=== PATIENT | female | born 1980 | race Caucasian/White ===

== ENCOUNTER 2023-08-19 18:37 | Emergency (ER) | payer BC, SELFPAY ==
[2023-08-19 18:39] VITALS: BP 130/90
[2023-08-19 19:09] VITALS: BMI 26.2
--- NOTE | 2023-08-19 19:18 | ED.GENMED ---
History of Present Illness
General
Chief Complaint: Abdominal Symptoms
Source: patient
Exam Limitations: none
Time Seen by Provider: 08/19/23 18:52
History of Present Illness
History of Present Illness:
This is a 42 year old female that comes in with c/o vomiting, diarrhea and left sided abd pain. States that she started yesterday with diarrhea. Then last night a little vomiting and then today she has been vomiting all day. States that she also has
left sided abd pain. States that she felt dizzy. Denies any fever, chills, chest pain, SOB, headache, urinary burning.
Past History
Past History
ED Past Medical History: Arrthythmia (PVC's) and Other (Sarcoidosis, small fiber neuropathy, Headaches, Arnold Chiari Malformation); Negative Cancer, GERD, HTN, Hypercholesterolemia, IDDM or NIDDM
ED Past Surgical History: (X 3), Gynecological (Hysterectomy) and Other (sinus Surgery, ); Negative Appendectomy or Bowel resection
Social History
Tobacco: Smoker
Alcohol: None
Drug: None
Personal:
Living: with family
Employment: Employed
Family History
Family History: Hypertension
Review of Systems
Review of Systems
All Other Systems: ROS reviewed and negative except as documented in HPI and ROS
Constitutional: Reports no symptoms; Denies fever or chills
EENT: Reports no symptoms
Respiratory: Reports no symptoms; Denies cough or trouble breathing
Cardiac: Reports no symptoms; Denies chest pain
ABD/GI: Reports abdominal pain, nausea, vomiting and diarrhea
: Reports no symptoms; Denies dysuria, frequency or urgency
Musculoskeletal: Reports no symptoms
Skin: Reports no symptoms
Neurological: Reports dizzy; Denies headache
Psychiatric: Reports no symptoms
Phy Exam
General Physical Exam
General Presentation: mild distress
General age: appears stated age
General Skin: warm and dry
General Habitus: normal
General Mental: alert
General Hydration: dry mucous membranes
ENT Exam
ENT Exam: TM's normal, pharynx normal and neck supple
Eye Exam
Eye Exam: EOMI
Cardiovascular Exam
Cardiovascular Exam: regular rate/rhythm, no edema, no murmur and normal peripheral pulses
Pulmonary Exam
Pulmonary Exam: lungs clear, no respiratory distress, no rales, chest non tender, no crackles, no rhonchi, no wheezing and no cough
Gastrointestinal Exam
Gastrointestinal Exam: non tender, soft, no organomegaly, no pulsatile mass, non distended and other (Hypoactive bowel sounds)
Musculoskeletal Exam
Musculoskeletal Exam: full ROM and no edema
Skin Exam
Skin Exam: normal color, warm/dry, no rash and no petechia
Psychiatric Exam
Psychiatric Exam: normal mood/affect
Course
Orders/Labs/Results
Orders:
Orders
08/19/23 19:16
0.9% Sodium Chloride 1000 ml [Nss] 1,000 ml IV BOLUS
Diphenhydramine [Benadryl] 25 mg IV NOW STA
HYDROmorphone [Dilaudid] 1 mg IV NOW STA
Prochlorperazine [Compazine] 5 mg IV NOW STA
Test Result ONCE
08/19/23 19:18
CT Abd/pel Without Iv Or Oral Urgent
Comment:
Reason For Exam: left sided abd pain
08/19/23 19:19
Complete Blood Count/With Diff Urgent
Comprehensive Metabolic Panel Urgent
HCG, Serum Qualitative Screen Urgent
08/19/23 20:02
Bedside Glucose- Treatment ONCE
08/19/23 20:33
Bedside Glucose- Treatment ONCE
08/19/23 21:11
Urinalysis Reflex To Culture Urgent
Date Specimen was Collected: 08/19/23
Time Specimen was Collected: 21:08
Abnormal Lab Results
08/19/23 08/19/23 08/19/23
19:19 20:17 21:11
Absolute Neuts (auto) 8.7 H 10^3/uL
(1.4-6.5)
Absolute Lymphs (auto) 1.1 L 10^3/uL
(1.2-3.4)
Neutrophils % 84.4 H %
(42.2-75.2)
Lymphocytes % 10.6 L %
(20.5-51.1)
Carbon Dioxide 14 L* mmol/L
(22-30)
Glucose 69 L mg/dl
(70-99)
Calcium 10.4 H mg/dl
(8.4-10.2)
Total Protein 8.4 H g/dl
(6.3-8.2)
Albumin 5.3 H g/dl
(3.5-5.0)
Urine Ketones 3+ A
(Negative)
POC Glucose 69 L mg/dl
(70-99)
08/19/23 19:19
08/19/23 19:19
[id number] low. Glucose slightly low (patient given juice and this came up ), Total protein slightly elevated. Albumin slightly elevated. Urine negative for infection.
Vital Signs
Initial and Last Documented VS:
Initial Vital Signs
Temp Pulse Resp BP Pulse Ox
97.9 F 90 20 130/90 99
08/19/23 18:39 08/19/23 18:39 08/19/23 18:39 08/19/23 18:39 08/19/23 18:39
Last Documented Vital Signs
Temp Pulse Resp BP Pulse Ox
97.9 F 83 13 109/69 96
08/19/23 18:39 08/19/23 21:00 08/19/23 21:00 08/19/23 21:00 08/19/23 21:00
MDM/Problems Addressed
Differential Diagnosis Includes:
Renal calculus, vomiting and diarrhea
MDM/Problems Addressed:
This is a 42 year old female that comes in with c/o vomiting and diarrhea and left sided abd pain. States that the diarrhea started last night with a little vomiting. Then today the vomiting got worse and she has left sided abd pain.
Will get labs, medicate for pain and vomiting, give IV fluids and CT scan.
Back into see patient. States that her pain is starting to come back. State that she just wants to go home. Will give patient Toradol IV. Encouraged patient to increase her water intake to 8-8oz glasses daily. She can use Ibuprofen at home for pain
with food. Follow up with the family doctor. Return with any concerns.
Chronic conditions affecting care:
NA
Acute Exacerbation and/or Progression of Chronic Illness:
NA
*Radiology
Radiology exam reviewed: radiology read reviewed (CT- Possible 2mm distal left ureteral stone versus a phlebolith. No evidence of obsruction. Stable suggesting more likely a phlebolith. )
*Pulse Oximetry
Patient hypoxic: no
*EKG
Interpreted by ED Provider?: NA
Rate: EKG- N/A
*Diesel Automotive Technician Interpretation
Rate: normal
Heart Rate: 78
Rhythm: sinus
*Critical Care Note
Total Time (30-74mins, 75-104mins- exclusive of procedures): Not Applicable
ED Attending Note
-
Portions of this chart may have been created with voice recognition software.� Occasional wrong word or��sound alike� substitutions may have occurred due to the inherent limitations of voice recognition software.
Discharge Plan
Departure
Patient Disposition: Home (Routine Discharge)
Date of Disposition: 08/19/23
Time of Disposition: 22:09
Patient with high blood pressure during this ER visit?: No
Condition: Good
Covid-19: Not Applicable
Discharge Problem:
Nausea & vomiting, Diarrhea
Instructions: Nausea and Vomiting, Adult (DC), Acute Diarrhea
Prescriptions:
New
prochlorperazine [Compazine] 25 mg suppository
25 mg CO Q12H PRN (Reason: Nausea and vomiting) Qty: 12 0RF
No Action
citalopram [Celexa] 40 MG tablet
40 mg PO DAILY
diphenhydramine HCl 50 mg Capsule
50 mg PO HS
topiramate [Topamax] 200 mg Tablet
200 mg PO HS
acetaminophen [Tylenol] 325 mg Tablet
650 mg PO PRN PRN (Reason: pain)
acetaminophen 325 mg Tablet
650 mg PO Q4HPRN PRN (Reason: mild pain) Qty: 20 0RF
pregabalin [Lyrica] 200 mg Capsule
200 mg PO TID
Wegovy 1 mg/0.5 mL Pen Injector
1 mg SC QWEEK
Referrals:
Juan David Copeland MD [Family Provider] - Follow up in 2-3 days
Activity Restrictions/Additional Instructions:
As discussed, your blood work shows that your carbon dioxide level is low. This goes along with the Vomiting and diarrhea. Please increase your water intake to 8-8oz glasses daily. You may use Ibuprofen 600mg every 6 hours with food for any pain.
Follow up with the family doctor for recheck. You have also been gven a prescription for Compazine to help with the nausea and vomiting. This is a rectal suppository. This can make you a little sleepy. Please stay away form milk and milk products as
long as you have diarrhea as this is hard for the gut to digest. IF YOU HAVE INCREASED PAIN, VOMITING THAT IT NOT CONTROLLED OR YOU HAVE ANY OTHER CONCERNS PLEASE RETURN TO THE EMERGENCY ROOM.
Interventions
Interventions:
*Risk Screen - Suicide Last Done: 08/19/23 18:39
*General Assessment Last Done: 08/19/23 18:39
*Neglect/Abuse Screening Last Done: 08/19/23 18:39
ED- Fall Risk Assessment Last Done: 08/19/23 19:32
TF-Oyizgd-Wpfaylbnxw Assessment Last Done: 08/19/23 19:32
Discharge Date and Time
Print Language: BELARUSIAN
[2023-08-19] MEDS: NSS 1000 IV (19:22)
[2023-08-19] MEDS: BENADRYL 25 MG IV ×2 (19:22)
[2023-08-19] MEDS: COMPAZINE 5 MG IV (19:24)
[2023-08-19] MEDS: DILAUDID 1 MG IV (19:24)
[2023-08-19 19:25] LABS: % Basophils 0.7 % (0-2); % Eosinophils 0.1 % (0-6); % Immature Granulocytes 0.3 % (0-0.5); % Lymphocytes 10.6 % (20.5-51.1); % Monocytes 3.9 % (1.7-9.3); % Neutrophils 84.4 % (42.2-75.2); Absolute Basophils 0.1 10^3/uL (0-0.2); Absolute Lymphocytes 1.1 10^3/uL (1.2-3.4); Absolute Monocytes 0.4 10^3/uL (0.1-0.6); Absolute Neutrophils 8.7 10^3/uL (1.4-6.5); Hematocrit 43.2 % (37.0-47.0); Hemoglobin 15.2 g/dL (12.0-16.0); Mean Corp Hgb Conc. 35.2 g/dL (33.0-37.0); Mean Corpuscular Hgb 28.8 pg (27.0-31.0); Mean Corpuscular Volume 81.8 fL (81.0-99.0); Mean Platelet Volume 10.3 fL (7.4-10.4); Nucleated Red Blood Cells % 0 %; Platelet Count 352 10^3/uL (130-400); Red Blood Cell Count 5.28 10^6/uL (4.20-5.40); Red Cell Dist. Width 13.7 % (11.5-14.5); White Blood Cell Count 10.3 10^3/uL (4.8-10.8)
[2023-08-19 19:30] VITALS: BP 130/90
[2023-08-19 19:39] LABS: HCG, Serum Qualitative Screen Negative
[2023-08-19 19:46] LABS: ALT (SGPT) 14 U/L (0-35); AST (SGOT) 20 U/L (14-36); Albumin 5.3 g/dl (3.5-5.0); Alkaline Phosphatase 88 U/L (38-126); Blood Urea Nitrogen 10 mg/dl (7-17); Calcium 10.4 mg/dl (8.4-10.2); Carbon Dioxide 14 mmol/L (22-30); Chloride 105 mmol/L (98-107); Estimated Creatinine Clearance 98 ml/min; Glucose 69 mg/dl (70-99); Potassium 3.7 mmol/L (3.5-5.1); Sodium 141 mmol/L (135-145); Total Bilirubin 0.6 mg/dl (0.2-1.3); Total Protein 8.4 g/dl (6.3-8.2); eGFR > 60.00
[2023-08-19 20:01] VITALS: BP 122/72
[2023-08-19 20:18] LABS: Glucose - Point of Care 69 mg/dl (70-99)
[2023-08-19 20:42] LABS: Glucose - Point of Care 74 mg/dl (70-99)
[2023-08-19 21:00] VITALS: BP 109/69
[2023-08-19 21:20] LABS: Urine Albumin Trace (Neg - Trace); Urine Bilirubin Negative (Negative); Urine Character Clear (Clear); Urine Color Yellow; Urine Glucose Negative (Negative); Urine Ketone 3+ (Negative); Urine Leukocyte Negative (Negative); Urine Nitrite Negative (Negative); Urine Occult Blood Negative (Negative); Urine Specific Gravity 1.025 (<1.030); Urine Urobilinogen Negative (Neg - 1+)
[2023-08-19 22:02] VITALS: BP 116/76
[2023-08-19] MEDS: TORADOL 30 MG IV (22:05)
== END 2023-08-19 22:20 | disposition home or self-care (01) ==
LOC: EMR 18:37
PROVIDERS: Clinical Nurse Specialist Family Health; EMERGENCY PHYSICIAN Emergency Medicine; FAMILY PHYSICIAN Family Medicine
DX: R11.2 Nausea with vomiting, unspecified (principal); R19.7 Diarrhea, unspecified; F17.200 Nicotine dependence, unspecified, uncomplicated
CPT/HCPCS: 99284; 96374; 96375 ×3; 96361; 74176; 80053; 81003; 82962; 84703; 85025

== ENCOUNTER 2023-09-11 14:18 | Emergency (ER) | payer BC, SELFPAY ==
[2023-09-11 14:22] VITALS: BP 127/86
[2023-09-11 14:43] LABS: % Eosinophils 1.2 % (0-6); % Immature Granulocytes 0.3 % (0-0.5); % Lymphocytes 10.1 % (20.5-51.1); % Monocytes 2.8 % (1.7-9.3); % Neutrophils 84.6 % (42.2-75.2); Absolute Basophils 0.1 10^3/uL (0-0.2); Absolute Eosinophils 0.1 10^3/uL (0-0.7); Absolute Lymphocytes 0.7 10^3/uL (1.2-3.4); Absolute Monocytes 0.2 10^3/uL (0.1-0.6); Absolute Neutrophils 6.1 10^3/uL (1.4-6.5); Hematocrit 42.1 % (37.0-47.0); Hemoglobin 14.3 g/dL (12.0-16.0); Mean Corpuscular Hgb 29.2 pg (27.0-31.0); Mean Corpuscular Volume 85.9 fL (81.0-99.0); Mean Platelet Volume 10.1 fL (7.4-10.4); Nucleated Red Blood Cells % 0 %; Platelet Count 251 10^3/uL (130-400); Red Cell Dist. Width 15.1 % (11.5-14.5); White Blood Cell Count 7.2 10^3/uL (4.8-10.8)
[2023-09-11 15:17] LABS: ALT (SGPT) 17 U/L (0-35); AST (SGOT) 20 U/L (14-36); Albumin 4.6 g/dl (3.5-5.0); Alkaline Phosphatase 84 U/L (38-126); Blood Urea Nitrogen 10 mg/dl (7-17); Carbon Dioxide 19 mmol/L (22-30); Chloride 112 mmol/L (98-107); Glucose 111 mg/dl (70-99); Potassium 4.4 mmol/L (3.5-5.1); Sodium 139 mmol/L (135-145); Total Bilirubin 0.6 mg/dl (0.2-1.3); Total Protein 7.7 g/dl (6.3-8.2); eGFR > 60.00
[2023-09-11 16:35] VITALS: BP 131/91
--- NOTE | 2023-09-11 17:22 | ED.GENMED ---
History of Present Illness
General
Chief Complaint: Withdrawal Symptoms
Source: patient
Exam Limitations: none
Time Seen by Provider: 09/11/23 16:39
History of Present Illness
History of Present Illness:
Patient went cold turkey on tramadol 2 days ago. Takes 20 tablets a day. These are 50 mg tablets. Stopped 2 days ago. Complaining of nausea some jitteriness. Some mild headache. No hallucinations no other complaints. Patient requesting help
for her withdrawal.
Past History
Past History
ED Past Medical History: Arrthythmia (PVC's) and Other (Sarcoidosis, small fiber neuropathy, Headaches, Arnold Chiari Malformation); Negative Cancer, GERD, HTN, Hypercholesterolemia, IDDM or NIDDM
ED Past Surgical History: (X 3), Gynecological (Hysterectomy) and Other (sinus Surgery, ); Negative Appendectomy or Bowel resection
Social History
Tobacco: Smoker
Alcohol: None
Drug: None
Personal:
Living: with family
Employment: Employed
Family History
Family History: Hypertension
Review of Systems
Review of Systems
All Other Systems: Not applicable
Constitutional: Denies fever or chills
Respiratory: Reports no symptoms
Cardiac: Reports no symptoms
Phy Exam
Physical Exam
Physical Exam:
GENERAL: Alert and oriented. Cooperative and pleasant. Upset and crying at times when talking about her medical issues.
EYE: Orbits normal.
NECK: Supple
CARDIAC: Regular rate and rhythm without any obvious murmurs.
LUNGS: Clear breath sounds,normal
ABDOMEN: Soft, without focal tenderness or distention
NEUROLOGICAL: Alert and oriented , grossly non-focal. No tremors. No flap.
SKIN: Warm and dry, no rash or lesion, no discoloration, skin intact.
MUSCULOSKELETAL: No edema,no deformity.Good color
PSYCH: Normal and appropriate interaction. Cooperative. No hallucinations. Interacting appropriately.
Course
Orders/Labs/Results
Orders:
Orders
09/11/23 14:32
CBC/With Diff [Complete Blood Count/With Diff] Urgent
Comprehensive Metabolic Panel Urgent
09/11/23 16:49
IV Insert/Care/Rem.- Treatment PRN
0.9% Sodium Chloride 1000 ml [Nss] 1,000 ml IV BOLUS
Test Result ONCE
09/11/23 16:50
Electrocardiogram (*1) Stat
Reason for Study: Other
Other Reason for Exam: overdose
EKG- Treatment ONCE
Lorazepam [Ativan] 1 mg IV NOW STA
09/11/23 17:27
Diphenhydramine [Benadryl] 25 mg IV NOW STA
Prochlorperazine [Compazine] 5 mg IV NOW STA
09/11/23 17:38
Acetaminophen Urgent
HCG, Serum Qualitative Screen Urgent
09/11/23 20:37
Lorazepam [Ativan] 1 mg PO NOW STA
Abnormal Lab Results
09/11/23 09/11/23
14:32 17:38
RDW 15.1 H %
(11.5-14.5)
Absolute Lymphs (auto) 0.7 L 10^3/uL
(1.2-3.4)
Neutrophils % 84.6 H %
(42.2-75.2)
Lymphocytes % 10.1 L %
(20.5-51.1)
Chloride 112 H mmol/L
(98-107)
Carbon Dioxide 19 L mmol/L
(22-30)
Glucose 111 H mg/dl
(70-99)
Acetaminophen < 10 L ug/ml
(10-30)
09/11/23 14:32
09/11/23 14:32
Vital Signs
Initial and Last Documented VS:
Initial Vital Signs
Temp Pulse Resp BP Pulse Ox
99.1 F 104 16 127/86 96
09/11/23 14:22 09/11/23 14:22 09/11/23 14:22 09/11/23 14:22 09/11/23 14:22
Last Documented Vital Signs
Temp Pulse Resp BP Pulse Ox
98.2 F 74 16 114/79 98
09/11/23 20:00 09/11/23 20:00 09/11/23 20:00 09/11/23 20:00 09/11/23 20:00
*Pulse Oximetry
Patient hypoxic: no
*Critical Care Note
Total Time (30-74mins, 75-104mins- exclusive of procedures): Not Applicable
Update Note
Update Note:
2039... Patient doing relatively well. Nausea has resolved. Mostly sleepy. Minimal jitteriness. They have been talking to [facility]. It looks like there is a chance of placement but not till the morning. They are comfortable with going home
tonight. Will give her dose of Ativan I will talk to be care is now
Patient is remained stable and nontoxic. Currently resting comfortably. No acute withdrawal symptoms on meds. Will give a small dose of Ativan prescription. Patient has follow-up in the morning for outpatient detox.
ED Attending Note
-
Portions of this chart may have been created with voice recognition software.� Occasional wrong word or��sound alike� substitutions may have occurred due to the inherent limitations of voice recognition software.
Discharge Plan
Departure
Patient Disposition: Home (Routine Discharge)
Date of Disposition: 09/11/23
Time of Disposition: 21:22
Patient with high blood pressure during this ER visit?: No
Discharge Problem:
Tramadol withdrawal
Prescriptions:
New
lorazepam [Ativan] 0.5 mg tablet
0.5 mg PO Q8H PRN (Reason: anxiety) Qty: 7 0RF
No Action
citalopram [Celexa] 40 MG tablet
40 mg PO DAILY
diphenhydramine HCl 50 mg Capsule
50 mg PO HS
topiramate [Topamax] 200 mg Tablet
200 mg PO HS
acetaminophen [Tylenol] 325 mg Tablet
650 mg PO PRN PRN (Reason: pain)
acetaminophen 325 mg Tablet
650 mg PO Q4HPRN PRN (Reason: mild pain) Qty: 20 0RF
pregabalin [Lyrica] 200 mg Capsule
200 mg PO TID
Wegovy 1 mg/0.5 mL Pen Injector
1 mg SC QWEEK
prochlorperazine [Compazine] 25 mg suppository
25 mg UT Q12H PRN (Reason: Nausea and vomiting) Qty: 12 0RF
Referrals:
UNKNOWN - PT DOES,NOT KNOW [Unknown Provider] -
Activity Restrictions/Additional Instructions:
You can use a milligram of Ativan up to 8 hours apart if you feel you are in some withdrawal
Talk to the referral tomorrow morning for help with your detox and withdrawal
Return sooner with any concerning symptoms including vomiting severe jitteriness confusion hallucinations or any other concerning symptoms
Follow-up closely with your primary physician
Interventions
Interventions:
*Risk Screen - Suicide Last Done: 09/11/23 14:22
*General Assessment Last Done: 09/11/23 14:22
*Neglect/Abuse Screening Last Done: 09/11/23 14:22
ED- Fall Risk Assessment Last Done: 09/11/23 17:42
*ED COVID-19 Vaccine History Last Done: 09/11/23 17:42
ED- Neurological Assessment Last Done: 09/11/23 16:39
ED-Psychological Assessment Last Done: 09/11/23 16:40
Discharge Date and Time
Print Language: DIVEHI
[2023-09-11] MEDS: NSS 1000 IV (17:31)
[2023-09-11] MEDS: ATIVAN 1 MG IV (17:32)
[2023-09-11 17:37] VITALS: BMI 26.7
[2023-09-11 17:44] VITALS: BP 113/74
[2023-09-11] MEDS: COMPAZINE 5 MG IV (17:44)
[2023-09-11] MEDS: BENADRYL 25 MG IV (17:45)
--- NOTE | 2023-09-11 17:50 | EDRN ---
Pt spoke w/ B Cares prior to moving from 26 to room #34 at [facility] 17:30.
[2023-09-11 18:04] LABS: HCG, Serum Qualitative Screen Negative
[2023-09-11 18:06] LABS: Acetaminophen < 10 ug/ml (10-30)
[2023-09-11 20:00] VITALS: BP 114/79
[2023-09-11] MEDS: ATIVAN 1 MG PO (21:54)
[2023-09-11 21:56] VITALS: BP 108/64
== END 2023-09-11 21:56 | disposition home or self-care (01) ==
LOC: EMR 14:18
PROVIDERS: Emergency Medicine; EMERGENCY PHYSICIAN Emergency Medicine
DX: F11.23 Opioid dependence with withdrawal (principal); F17.200 Nicotine dependence, unspecified, uncomplicated
CPT/HCPCS: 99284; 96374; 96375 ×2; 96361; 80053; 80143; 84703; 85025; 93005

== ENCOUNTER 2023-09-14 19:21 | Emergency (ER) | payer BC, SELFPAY ==
[2023-09-14] VITALS (7 sets, daily range): BP systolic 89–105; BP diastolic 60–72; BMI 25.4
--- NOTE | 2023-09-14 20:02 | ED.GENMED ---
History of Present Illness
General
Chief Complaint: Heart Rate Problem
Source: patient
Exam Limitations: none
Time Seen by Provider: 09/14/23 19:27
History of Present Illness
History of Present Illness:
This is a 42 year old female that comes in with c/o upper abd pain. States that she started with diarrhea around 5:30-6pm when she got up from a nap. States that she had diarrhea once and she started with upper abd pain that goes up into her chest.
States that she also has pain in her back. States that she was here on Thursday with Tramadol withdraw and is going inpatient tomorrow for treatment. States that tonight she was also nauseated, vomiting and lightheaded. Denies any fever, chills, chest
pain, SOB, headache, urinary burning.
Past History
Past History
ED Past Medical History: Arrthythmia (PVC's), Psychiatric (Anxiety, ) and Other (Sarcoidosis, small fiber neuropathy, Headaches, Arnold Chiari Malformation, Dizziness, Neuropathy. Menorrhagia, Renal calculus, ); Negative Cancer, GERD, HTN,
Hypercholesterolemia, IDDM or NIDDM
ED Past Surgical History: (X 3), Gynecological (Hysterectomy) and Other (sinus Surgery, ); Negative Appendectomy or Bowel resection
Social History
Tobacco: Smoker
Alcohol: None
Drug: None
Personal:
Living: with family
Employment: Employed
Family History
Family History: Hypertension
Review of Systems
Review of Systems
All Other Systems: ROS reviewed and negative except as documented in HPI and ROS
Constitutional: Reports no symptoms; Denies fever or chills
EENT: Reports no symptoms
Respiratory: Reports no symptoms; Denies cough or trouble breathing
Cardiac: Denies chest pain
ABD/GI: Reports abdominal pain (Upper abd), nausea, vomiting and diarrhea
: Reports no symptoms; Denies dysuria, frequency or urgency
Musculoskeletal: Reports no symptoms
Skin: Reports no symptoms
Neurological: Reports other (Lightheaded); Denies dizzy or headache
Psychiatric: Reports no symptoms
Phy Exam
General Physical Exam
General Presentation: no apparent distress
General age: appears stated age
General Skin: warm and dry
General Habitus: normal
General Mental: alert
General Hydration: appears well hydrated
ENT Exam
ENT Exam: TM's normal, pharynx normal and neck supple
Eye Exam
Eye Exam: EOMI
Cardiovascular Exam
Cardiovascular Exam: regular rate/rhythm, no edema, no murmur and normal peripheral pulses
Pulmonary Exam
Pulmonary Exam: lungs clear, no respiratory distress, no rales, chest non tender, no crackles, no rhonchi and no cough
Gastrointestinal Exam
Gastrointestinal Exam: normal bowel sounds, soft, no organomegaly, no pulsatile mass, non distended and tender (Upper abd tenderness with palpation)
Musculoskeletal Exam
Musculoskeletal Exam: full ROM and no edema
Skin Exam
Skin Exam: normal color, warm/dry, no rash and no petechia
Psychiatric Exam
Psychiatric Exam: normal mood/affect
Course
Orders/Labs/Results
Orders:
Orders
09/14/23 20:01
0.9% Sodium Chloride 1000 ml [Nss] 1,000 ml IV BOLUS
Pantoprazole [Protonix IV] 40 mg IV NOW STA
Sucralfate Suspension [Carafate Suspension] 1 gm PO NOW STA
09/14/23 20:02
CR Chest - 2 Views Urgent
Comment:
Reason For Exam: uPPER ABD PAIN INTO CHEST, BACK PAIN
09/14/23 20:03
Acetaminophen 1000MG/100Ml [Ofirmev] 1,000 mg in 100 ml IV ONCE
Acetaminophen IV Indication:: ED Narcotic Naive Pt-ONCE
Ketorolac [Toradol] 30 mg IV NOW STA
09/14/23 20:08
Metoclopramide [Reglan] 10 mg IV NOW STA
09/14/23 20:11
Electrocardiogram (*1) Urgent
Reason for Study: Abdominal Pain
EKG- Treatment ONCE
09/14/23 20:12
Complete Blood Count/With Diff Urgent
Comprehensive Metabolic Panel Urgent
D-Dimer Urgent
Lipase Urgent
Troponin I Urgent
09/14/23 22:24
Potassium Chloride [KCl] 40 meq 0.9% Sodium Chloride 250 ml [Nss] 250 ml IV NOW
09/14/23 22:35
Urinalysis Reflex To Culture Urgent
Date Specimen was Collected: 09/14/23
Time Specimen was Collected: 22:29
09/14/23 23:13
Diphenhydramine [Benadryl] 50 mg .ROUTE .STK-MED ONE
09/14/23 23:14
Diphenhydramine [Benadryl] 25 mg IV NOW STA
Abnormal Lab Results
09/14/23 09/14/23
20:12 22:35
WBC 14.5 H 10^3/uL
(4.8-10.8)
RDW 14.7 H %
(11.5-14.5)
Abs Immat Gran (auto) 0.1 H 10^3/uL
(0-0.05)
Absolute Neuts (auto) 12.8 H 10^3/uL
(1.4-6.5)
Absolute Lymphs (auto) 0.7 L 10^3/uL
(1.2-3.4)
Absolute Monos (auto) 0.7 H 10^3/uL
(0.1-0.6)
Neutrophils % 88.6 H %
(42.2-75.2)
Lymphocytes % 4.5 L %
(20.5-51.1)
Potassium 2.9 L mmol/L
(3.5-5.1)
Chloride 114 H mmol/L
(98-107)
Carbon Dioxide 17 L mmol/L
(22-30)
Glucose 128 H mg/dl
(70-99)
AST 67 H U/L
(14-36)
Urine Ketones 1+ A
(Negative)
Urine Bilirubin 1+ A
(Negative)
09/14/23 20:12
09/14/23 20:12
Leukocytosis, Hypokalemia, Chloride elevated. Carbon dioxide low. Glucose nonfasting. AST elevation. Urine negative for infection. troponin <0.012, D-dimer 0.31, Lipase normal at 274
Vital Signs
Initial and Last Documented VS:
Initial Vital Signs
Temp Pulse Resp BP Pulse Ox
97.7 F 81 12 99/68 98
09/14/23 19:23 09/14/23 19:23 09/14/23 19:23 09/14/23 19:23 09/14/23 19:23
Last Documented Vital Signs
Temp Pulse Resp BP Pulse Ox
97.7 F 61 16 104/73 95
09/14/23 19:23 09/15/23 01:30 09/15/23 01:30 09/15/23 01:00 09/15/23 01:30
MDM/Problems Addressed
Differential Diagnosis Includes:
Gastritis, viral syndrome.
MDM/Problems Addressed:
This is a 42 year old female that comes in with c/o diarrhea. Upper abd pain that goes into her chest and nausea and vomiting. States that this started at 5:30-6pm tonight.
Will check labs. Give IV fluids. Medicate for pain and nausea.
Back into see patient and . Explained that her Blood work shows that her WBC are slightly elevated and her potassium is very low. Will give patient IV potassium as patient is going in patient for Treatment fro withdraw from Tramadol. Patient
Chest x-ray is normal, D-dimer is negative. Troponin is negative. Patient states that the medication that she was given took her pain away. Explained that this is most likely a gastritis. Will place paient on Protonix and Carafate when discharged.
Chronic conditions affecting care:
NA
Acute Exacerbation and/or Progression of Chronic Illness:
NA
*Radiology
Radiology exam reviewed: preliminary read by ED provider (Chest- Negative for active disease. )
*Pulse Oximetry
Patient hypoxic: no
*EKG
Interpreted by ED Provider?: Yes
Heart Rate: 87
Rate: normal
Rhythm: sinus
[place]: normal axis
Interval: normal interval
QRS Pattern: normal QRS
Ischemia: no ischemia
*Ornamental Iron Erector Interpretation
Rate: normal
Heart Rate: 81
Rhythm: sinus
*Critical Care Note
Total Time (30-74mins, 75-104mins- exclusive of procedures): Not Applicable
ED Attending Note
-
Portions of this chart may have been created with voice recognition software.� Occasional wrong word or��sound alike� substitutions may have occurred due to the inherent limitations of voice recognition software.
Discharge Plan
Departure
Patient Disposition: Home (Routine Discharge)
Date of Disposition: 09/15/23
Time of Disposition: 02:18
Patient with high blood pressure during this ER visit?: No
Condition: Good
Covid-19: Not Applicable
Discharge Problem:
Acute hypokalemia, Gastritis
Instructions: Hypokalemia, Gastritis (DC)
Prescriptions:
New
pantoprazole [Protonix] 40 mg tablet,delayed release (DR/EC)
40 mg PO DAILY Qty: 30 0RF
sucralfate [Carafate] 1 gram tablet
1 g PO ACHS Qty: 40 0RF
Rx Instructions:
30MIN-1HOUR BEFORE MEALS AND BEDTIME. DISSOLVE IN 2TSP OF WATER AND DRINK
potassium chloride 20 mEq packet
20 meq PO DAILY Qty: 3 0RF
No Action
citalopram [Celexa] 40 MG tablet
40 mg PO DAILY
diphenhydramine HCl 50 mg Capsule
50 mg PO HS
topiramate [Topamax] 200 mg Tablet
200 mg PO HS
acetaminophen [Tylenol] 325 mg Tablet
650 mg PO PRN PRN (Reason: pain)
acetaminophen 325 mg Tablet
650 mg PO Q4HPRN PRN (Reason: mild pain) Qty: 20 0RF
pregabalin [Lyrica] 200 mg Capsule
200 mg PO TID
Wegovy 1 mg/0.5 mL Pen Injector
1 mg SC QWEEK
prochlorperazine [Compazine] 25 mg suppository
25 mg NE Q12H PRN (Reason: Nausea and vomiting) Qty: 12 0RF
lorazepam [Ativan] 0.5 mg tablet
0.5 mg PO Q8H PRN (Reason: anxiety) Qty: 7 0RF
Referrals:
NONE,* [Family Provider] -
Activity Restrictions/Additional Instructions:
As discussed, your blood work shows that your Potassium was very low. You have been given IV potassium here and a prescription for oral potassium for the next 3 days. You upper abdominal pain is most likely due to gastritis. You have been started on
Protonix daily to help coat the stomach and decrease the acid. You have also been given a prescription for Carafate that will help coat the stomach. Please take this 30min to 1 hour before each meal and again at bedtime for the next 10 days. Follow
up with the family doctor for recheck. IF YOU HAVE INCREASED OR CHANGING PAIN, OR YOU HAVE ANY OTHER CONCERNS PLEASE RETURN TO THE EMERGENCY ROOM.
Interventions
Interventions:
*Risk Screen - Suicide Last Done: 09/14/23 19:33
*General Assessment Last Done: 09/14/23 19:33
*Neglect/Abuse Screening Last Done: 09/14/23 19:33
ED- Fall Risk Assessment Last Done: 09/14/23 22:50
*ED COVID-19 Vaccine History Last Done: 09/14/23 19:33
ED- Cardiac Assessment Last Done: 09/14/23 19:40
ED- Pulmonary Assessment Last Done: 09/14/23 19:40
Discharge Date and Time
Print Language: ROMANIAN
[2023-09-14] MEDS: NSS 1000 IV (20:15)
[2023-09-14] MEDS: REGLAN 10 MG IV (20:16)
[2023-09-14] MEDS: TORADOL 30 MG IV (20:17)
[2023-09-14] MEDS: PROTONIX IV 40 MG IV (20:20)
[2023-09-14] MEDS: OFIRMEV 100 IV (20:21)
[2023-09-14] MEDS: CARAFATE SUSPENSION 1 GM PO (20:23)
[2023-09-14 20:26] LABS: % Basophils 0.5 % (0-2); % Eosinophils 1.2 % (0-6); % Immature Granulocytes 0.5 % (0-0.5); % Lymphocytes 4.5 % (20.5-51.1); % Monocytes 4.7 % (1.7-9.3); % Neutrophils 88.6 % (42.2-75.2); Absolute Basophils 0.1 10^3/uL (0-0.2); Absolute Eosinophils 0.2 10^3/uL (0-0.7); Absolute Immature Granulocytes 0.1 10^3/uL (0-0.05); Absolute Lymphocytes 0.7 10^3/uL (1.2-3.4); Absolute Monocytes 0.7 10^3/uL (0.1-0.6); Absolute Neutrophils 12.8 10^3/uL (1.4-6.5); Hematocrit 39.8 % (37.0-47.0); Mean Corp Hgb Conc. 35.2 g/dL (33.0-37.0); Mean Corpuscular Volume 85.4 fL (81.0-99.0); Mean Platelet Volume 9.7 fL (7.4-10.4); Nucleated Red Blood Cells % 0 %; Platelet Count 194 10^3/uL (130-400); Red Blood Cell Count 4.66 10^6/uL (4.20-5.40); Red Cell Dist. Width 14.7 % (11.5-14.5); White Blood Cell Count 14.5 10^3/uL (4.8-10.8)
[2023-09-14 20:33] LABS: D-Dimer 0.31 ug/mlFEU (0.00-0.50)
[2023-09-14 20:43] LABS: Troponin I < 0.012 ng/ml
[2023-09-14 20:47] LABS: ALT (SGPT) 26 U/L (0-35); AST (SGOT) 67 U/L (14-36); Albumin 4.1 g/dl (3.5-5.0); Alkaline Phosphatase 72 U/L (38-126); Blood Urea Nitrogen 13 mg/dl (7-17); Calcium 9.3 mg/dl (8.4-10.2); Carbon Dioxide 17 mmol/L (22-30); Chloride 114 mmol/L (98-107); Estimated Creatinine Clearance 89 ml/min; Glucose 128 mg/dl (70-99); Lipase 274 U/L (23-300); Potassium 2.9 mmol/L (3.5-5.1); Sodium 139 mmol/L (135-145); Total Bilirubin 0.7 mg/dl (0.2-1.3); Total Protein 6.9 g/dl (6.3-8.2); eGFR > 60.00
[2023-09-14] MEDS: KCL 270 MEQ IV (22:39)
[2023-09-14 23:00] LABS: Urine Albumin Trace (Neg - Trace); Urine Bilirubin 1+ (Negative); Urine Character Slightly Cloudy (Clear); Urine Color Amber; Urine Glucose Negative (Negative); Urine Ketone 1+ (Negative); Urine Leukocyte Negative (Negative); Urine Nitrite Negative (Negative); Urine Occult Blood Negative (Negative); Urine Specific Gravity 1.015 (<1.030); Urine Urobilinogen Negative (Neg - 1+)
[2023-09-14] MEDS: BENADRYL 25 MG IV (23:15)
--- NOTE | 2023-09-14 23:22 | EDRN ---
Report received, introduced myself to patient, patient reports feeling a little antsy and asking for benadryl, spoke with JESSE Castro who reports that is ok, medicated patient and turned down lights.
[2023-09-15] VITALS: BP 95/53
[2023-09-15 01:00] VITALS: BP 104/73
--- NOTE | 2023-09-15 01:40 | EDRN ---
Patient resting comfortably at this time,call mccann in reach, VSS.
[2023-09-15 02:00] VITALS: BP 110/71
[2023-09-15 03:00] VITALS: BP 109/72
== END 2023-09-15 03:58 | disposition home or self-care (01) ==
LOC: EMR 19:21
PROVIDERS: Clinical Nurse Specialist Family Health; EMERGENCY PHYSICIAN Student in an Organized Health Care Education/Training Program
DX: K29.00 Acute gastritis without bleeding (principal); E87.6 Hypokalemia; R42 Dizziness and giddiness; M54.9 Dorsalgia, unspecified; F41.9 Anxiety disorder, unspecified; D86.9 Sarcoidosis, unspecified; G62.9 Polyneuropathy, unspecified; Q07.00 Arnold-Chiari syndrome without spina bifida or hydrocephalus; F17.200 Nicotine dependence, unspecified, uncomplicated; Z88.1 Allergy status to other antibiotic agents; Z88.5 Allergy status to narcotic agent; Z88.8 Allergy status to other drugs, medicaments and biological substances
CPT/HCPCS: 99284; 96374; 96375 ×5; 96361 ×5; 71046; 80053; 81003; 83690; 84484; 85025; 85379; 93005

== ENCOUNTER 2023-09-24 12:58 | Inpatient (IN) | payer BC, SELFPAY ==
[2023-09-24] VITALS (7 sets, daily range): BP systolic 107–122; BP diastolic 65–84; BMI 26.3; BMI 25.9
--- NOTE | 2023-09-24 07:15 | ED.GENMED ---
History of Present Illness
General
Chief Complaint: Abdominal Pain
Source: patient and spouse
Exam Limitations: none
Time Seen by Provider: 09/24/23 07:03
Nursing documentation reviewed up to this point in time: agreed with
History of Present Illness
History of Present Illness:
[id number]-year-old female past medical history of sarcoidosis presenting to the emergency department today with concerns of severe mid abdominal pain mainly to the right side with some radiation to the back associated nausea and multiple episodes
of vomiting. No diarrhea. Denies any fevers chest pain shortness of breath. Previous hysterectomy but no additional abdominal surgeries. Denies any smoking drinking or drug use.
Past History
Past History
ED Past Medical History: Arrthythmia (PVC's), Psychiatric (Anxiety, ) and Other (Sarcoidosis, small fiber neuropathy, Headaches, Arnold Chiari Malformation, Dizziness, Neuropathy. Menorrhagia, Renal calculus, ); Negative Cancer, GERD, HTN,
Hypercholesterolemia, IDDM or NIDDM
ED Past Surgical History: (X 3), Gynecological (Hysterectomy) and Other (sinus Surgery, ); Negative Appendectomy or Bowel resection
Social History
Tobacco: Smoker
Alcohol: None
Drug: None
Personal:
Living: with family
Employment: Employed
Family History
Family History: Hypertension
Review of Systems
Review of Systems
Allergies reviewed?: Yes
All Other Systems: ROS reviewed and negative except as documented in HPI and ROS
Phy Exam
Physical Exam
Physical Exam:
GENERAL: Alert , in no apparent distress
EYE: pupils equal and reactive
NECK: Supple, no significant adenopathy.
ENT: o/p clr, mmm.
CARDIAC: Regular rate and rhythm .
LUNGS: Clear breath sounds bilaterally, no acute respiratory distress, no wheezes/rales/rhonchi
ABDOMEN: Vague abdominal tenderness maximal to the right side of the abdomen some focal tenderness to the right lower quadrant and right upper quadrant but negative Driscoll's. There is some degree of reproducible tenderness to the
NEUROLOGICAL: Alert and oriented, no focal neuro deficits
SKIN: Warm and dry, skin intact.
MUSCULOSKELETAL: No edema, well perfused.
PSYCH: Normal and appropriate interaction.
Course
Orders/Labs/Results
Orders:
Orders
09/24/23 07:00
Electrocardiogram (*1) Urgent
Reason for Study: Abdominal Pain
EKG- Treatment ONCE
IV Insert/Care/Rem.- Treatment PRN
Test Result ONCE
09/24/23 07:01
Complete Blood Count/With Diff Urgent
Comprehensive Metabolic Panel Urgent
HCG, Serum Qualitative Screen Urgent
Comment: Notify provider if positive test present
Lipase Urgent
09/24/23 07:12
0.9% Sodium Chloride 1000 ml [Nss] 1,000 ml IV BOLUS
Famotidine [Pepcid] 20 mg IV NOW STA
Ketorolac [Toradol] 15 mg IV NOW STA
Prochlorperazine [Compazine] 10 mg IV NOW STA
09/24/23 07:13
CT Abd/Pel (IV only)-DH only Urgent
Comment:
Reason For Exam: right sided abd pain
09/24/23 07:25
Diphenhydramine [Benadryl] 25 mg IV NOW STA
09/24/23 08:49
US Abdomen Complete/Upper Urgent
Comment:
Reason For Exam: RUQ pain, Biliary pathology on CT
09/24/23 08:59
Urinalysis Reflex To Culture Urgent
Date Specimen was Collected: 09/24/23
Time Specimen was Collected: 08:52
09/24/23 09:02
HYDROmorphone [Dilaudid] 0.5 mg IV NOW STA
Abnormal Lab Results
09/24/23
07:01
WBC 11.5 H 10^3/uL
(4.8-10.8)
RDW 15.8 H %
(11.5-14.5)
Abs Immat Gran (auto) 0.1 H 10^3/uL
(0-0.05)
Absolute Neuts (auto) 9.3 H 10^3/uL
(1.4-6.5)
Absolute Monos (auto) 0.7 H 10^3/uL
(0.1-0.6)
Neutrophils % 80.4 H %
(42.2-75.2)
Lymphocytes % 10.2 L %
(20.5-51.1)
Chloride 114 H mmol/L
(98-107)
Glucose 154 H mg/dl
(70-99)
AST 146 H U/L
(14-36)
ALT 64 H U/L
(0-35)
Lipase 374 H U/L
(23-300)
09/24/23 07:01
09/24/23 07:01
Vital Signs
Initial and Last Documented VS:
Initial Vital Signs
Temp Pulse Resp BP Pulse Ox
98.3 F 68 20 118/75 100
09/24/23 06:45 09/24/23 06:45 09/24/23 06:45 09/24/23 06:45 09/24/23 06:45
Last Documented Vital Signs
Temp Pulse Resp BP Pulse Ox
98.3 F 62 18 121/70 98
09/24/23 06:45 09/24/23 11:35 09/24/23 11:35 09/24/23 11:35 09/24/23 11:35
MDM/Problems Addressed
MDM/Problems Addressed:
42-year-old female presenting to the emergency department today with concerns of severe mid abdominal pain in the right upper quad abdominal pain rating to the back which woke her up this morning. Ongoing symptoms here initial CT scan performed
that showed potential biliary process ultrasound confirming dilatation of the biliary ducts without obvious choledocho. Case discussed with GI who will follow as an inpatient otherwise some transaminitis and mildly elevated lipase stable here in
the ER
*Critical Care Note
Total Time (30-74mins, 75-104mins- exclusive of procedures): Not Applicable
ED Attending Note
-
Portions of this chart may have been created with voice recognition software.� Occasional wrong word or��sound alike� substitutions may have occurred due to the inherent limitations of voice recognition software.
Discharge Plan
Departure
Patient Disposition: Admit
Date of Disposition: 09/24/23
Time of Disposition: 12:31
Admit to: Med/Surg
Admit to doctor: Justin
Presentation/result/management discussed w/ accepting MD/DO: Hospitalist
Patient with high blood pressure during this ER visit?: No
Condition: Good
Covid-19: Not Applicable
Discharge Problem:
Intrahepatic bile duct dilation, Transaminitis
Prescriptions:
No Action
citalopram [Celexa] 40 MG tablet
40 mg PO DAILY
diphenhydramine HCl 50 mg Capsule
50 mg PO HS
topiramate [Topamax] 200 mg Tablet
200 mg PO HS
acetaminophen [Tylenol] 325 mg Tablet
650 mg PO PRN PRN (Reason: pain)
acetaminophen 325 mg Tablet
650 mg PO Q4HPRN PRN (Reason: mild pain) Qty: 20 0RF
Referrals:
Nadiya Acevedo PA-C [Family Provider] -
Interventions
Interventions:
*Risk Screen - Suicide Last Done: 09/24/23 06:45
*General Assessment Last Done: 09/24/23 06:45
*Neglect/Abuse Screening Last Done: 09/24/23 06:45
ED- Fall Risk Assessment Last Done: 09/24/23 06:45
*ED COVID-19 Vaccine History Last Done: 09/24/23 06:45
VD-Cxsytv-Tqkymrflhf Assessment Last Done: 09/24/23 06:55
Discharge Date and Time
Print Language: GERMAN
[2023-09-24 07:17] LABS: % Basophils 0.7 % (0-2); % Eosinophils 2.3 % (0-6); % Immature Granulocytes 0.4 % (0-0.5); % Lymphocytes 10.2 % (20.5-51.1); % Neutrophils 80.4 % (42.2-75.2); Absolute Basophils 0.1 10^3/uL (0-0.2); Absolute Eosinophils 0.3 10^3/uL (0-0.7); Absolute Immature Granulocytes 0.1 10^3/uL (0-0.05); Absolute Lymphocytes 1.2 10^3/uL (1.2-3.4); Absolute Monocytes 0.7 10^3/uL (0.1-0.6); Absolute Neutrophils 9.3 10^3/uL (1.4-6.5); Hematocrit 39.9 % (37.0-47.0); Hemoglobin 13.5 g/dL (12.0-16.0); Mean Corp Hgb Conc. 33.8 g/dL (33.0-37.0); Mean Corpuscular Hgb 29.5 pg (27.0-31.0); Mean Corpuscular Volume 87.1 fL (81.0-99.0); Mean Platelet Volume 9.9 fL (7.4-10.4); Nucleated Red Blood Cells % 0 %; Platelet Count 330 10^3/uL (130-400); Red Blood Cell Count 4.58 10^6/uL (4.20-5.40); Red Cell Dist. Width 15.8 % (11.5-14.5); White Blood Cell Count 11.5 10^3/uL (4.8-10.8)
[2023-09-24] MEDS: NSS 1000 IV ×2 (07:19→14:22)
[2023-09-24] MEDS: TORADOL 15 MG IV (07:20)
[2023-09-24 07:21] LABS: ALT (SGPT) 64 U/L (0-35); AST (SGOT) 146 U/L (14-36); Albumin 4.2 g/dl (3.5-5.0); Alkaline Phosphatase 75 U/L (38-126); Blood Urea Nitrogen 15 mg/dl (7-17); Calcium 9.8 mg/dl (8.4-10.2); Carbon Dioxide 23 mmol/L (22-30); Chloride 114 mmol/L (98-107); Estimated Creatinine Clearance 102 ml/min; Glucose 154 mg/dl (70-99); Lipase 374 U/L (23-300); Potassium 4.5 mmol/L (3.5-5.1); Sodium 142 mmol/L (135-145); Total Bilirubin 0.6 mg/dl (0.2-1.3); Total Protein 6.7 g/dl (6.3-8.2); eGFR > 60.00
[2023-09-24] MEDS: PEPCID 20 MG IV (07:21)
[2023-09-24] MEDS: COMPAZINE 10 MG IV (07:29)
[2023-09-24 07:32] LABS: HCG, Serum Qualitative Screen Negative
[2023-09-24] MEDS: BENADRYL 25 MG IV (07:32)
[2023-09-24 09:11] LABS: Urine Albumin Negative (Neg - Trace); Urine Bilirubin Negative (Negative); Urine Character Very Cloudy (Clear); Urine Color Yellow; Urine Glucose Negative (Negative); Urine Ketone Negative (Negative); Urine Leukocyte Negative (Negative); Urine Nitrite Negative (Negative); Urine Occult Blood Negative (Negative); Urine Specific Gravity 1.015 (<1.030); Urine Urobilinogen Negative (Neg - 1+)
[2023-09-24] MEDS: DILAUDID 0.5 MG IV (09:29)
--- NOTE | 2023-09-24 11:54 | CON.GI ---
Addendum entered and electronically signed by Alyssa Zavala MD 09/24/23 14:12:
I saw and examined the patient.
The SURGICAL CONSULTANT's note was reviewed and I agree with the note.
Comment: This is a 42-year-old female with past medical history as listed below who presents with acute onset of epigastric pain radiating to the back which woke her up from sleep at 4 AM today. On admission she was noted to have gallstones with
dilated CBD and abnormal LFTs. She also had a recent evaluation 09/10 for tramadol withdrawal symptoms. She also had a 50 pound weight loss since April she has been under a lot of stress her dad from complications while on treatment for
metastatic lung CA, she had also been on Wegovy till August.
Assessment and plan acute onset of epigastric pain radiating to the back with abnormal LFTs and mildly elevated lipase level concerning for possible Choledocholithiasis given she also had dilated ducts with gallstones on imaging. Will get an MRI
with MRCP and if she does have a retained CBD stone will need ERCP if not can proceed with cholecystectomy timing per surgery. There is no evidence of acute cholecystitis on imaging
Original Note:
Consultation
-
Date/Time Consultation Requested: 09/24/23 1140
Date/Time Consultation Performed: 09/24/23 1200
Requesting Provider: Johnnie Gutiérrez PA-C
Performing Provider: RACHEL Nowak, Alyssa Zavala MD
Reason for Consultation: cholelithiasis
Medical History
Chief Complaint / HPI
Chief Complaint: abdominal pain
History of Present Illness:
Pt is a 42yo with hx PVC's, anxiety, Sarcoidosis, small fiber neuropathy, Headaches, Arnold Chiari Malformation, Dizziness, Menorrhagia, Renal calculus several recent ER visits. She had eval 09/10 with withdrawal symptoms from Tramadol with
decreasing dose she was taking for Neuropathy with nausea and jitters. She returned 09/13 with upper abdominal pain with diarrhea and now returns with continued abdominal pain. Pt is noted with leukocytosis and increased LFT's with initially normal
labs now bili 06, AST 146, ALT 64 and alk phos 75 with lipase 374. She had several imaging studies with non contrast CT 08/18 with Possible 2 mm distal left ureteral stone versus a phlebolith, CT a/p 09/23 with distended GB with intra and
extrahepatic ductal dilation CBD 1 cm no stone seen possible cholecystitis 09/23 US with cholelithiasis with GB distention no acute cholecystitis but intrahepatic/extrahepatic dilatation without choledocholithiasis t/c MRCP.
In reviewing with patient this episode started at 4am. She ate georgian food last PM then pain awoke her from sleep to 10/10 pain. Pain is upper abdomen. After admission patient was given patient medication with improvement. Pt also admits to
50+ lb wt loss with stress of father's and was taking Wegovy til August. Pt admits to some GERD with tums use as needed. denies odynophagia, dysphagia, change in stool or urine color, diarrhea, constipation or rectal bleeding. She also
reports colonoscopy [address] Lewis at [facility] recalls as Hyperplastic polyps as saw for IBS in past. Pt denies NSAID use and no other change in medication other with decrease Tramadol doses and withdrawal.
Past Medical History
Past Medical History: Arrhythmias (PVC's), Psychiatric (anxiety) and Other (Sarcoidosis, small fiber neuropathy, Headaches, Arnold Chiari Malformation, Dizziness, Neuropathy. Menorrhagia, Renal calculus, benign colon polyps, IBS)
Past Surgical History: , Gynecological (hysterectomy) and Other (sinus surgery)
Social History
Tobacco: Smoker (1 pk every 2 days )
Alcohol: None
Drug: None
Personal:
Living: With Family
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
Family History
Family History: Other (father with lung CA no family hx colon Ca or polyps)
Allergies / Home Medications
Allergy/AdvReac Type Severity Reaction Status Date / Time
levofloxacin [From Levaquin] Allergy TACHYCARDIA Verified 09/24/23 06:45
morphine Allergy severe Verified 09/24/23 06:45
headaches
ondansetron HCl [From Zofran] Allergy RASH AND Verified 09/24/23 06:45
HEADACHE
�Medication �Instructions �Recorded
citalopram 40 mg tablet (Celexa) 40 mg PO DAILY Mental 04/19/08
Health/Anxiety
diphenhydramine HCl 50 mg capsule 50 mg PO HS Allergies 09/26/22
topiramate 200 mg tablet (Topamax) 200 mg PO HS Mental Health/Anxiety 09/26/22
acetaminophen 325 mg tablet 650 mg PO PRN PRN pain 10/01/22
(Tylenol)
acetaminophen 325 mg tablet 650 mg (2 x 325 mg) PO Q4HPRN PRN 10/04/22
mild pain #20 tabs
Review of Systems
-
History Source: Patient
Constitutional: Reports Weight Loss ( 50 lb with stress and Wegovy last 6 months )
EENT: Reports No Symptoms
Respiratory: Reports No Symptoms
Cardiac: Reports No Symptoms
Abdomen/GI: Reports Abdominal Pain and Nausea
: Reports No Symptoms
Musculoskeletal: Reports Other (chronic neuropathy pain)
Skin: Reports No Symptoms
Neurological: Reports No Symptoms
Endocrine: Reports No Symptoms
Hematologic/Lymphatic: Reports No Symptoms
Vital Signs
Temp Pulse Resp BP Pulse Ox
98.3 F 70 18 122/76 100
09/24/23 06:45 09/24/23 09:32 09/24/23 09:32 09/24/23 09:32 09/24/23 09:32
Physical Exam
Exam
General: Well Developed, Well Nourished and No Apparent Distress
HEENT: Normocephalic and Anicteric
Respiratory: Clear
Cardiac: Regular Rhythm
GI: Soft, Non Distended and Tender (minimal )
Genito-urinary: No Costovertebral Tender
Musculoskeletal: No Clubbing and No Cyanosis
Skin: Warm and Dry
Neuro: Awake, Alert and AO x 3
Psych: Calm
Results
WBC 11.5 10^3/uL (4.8-10.8) H 09/24/23 07:01
Hgb 13.5 g/dL (12.0-16.0) 09/24/23 07:01
Hct 39.9 % (37.0-47.0) 09/24/23 07:
MCV 87.1 fL (81.0-99.0) 09/24/23 07:01
Plt Count 330 10^3/uL (130-400) 09/24/23 07:01
Absolute Neuts (auto) 9.3 10^3/uL (1.4-6.5) H 09/24/23 07:01
Sodium 142 mmol/L (135-145) 09/24/23 07:01
Potassium 4.5 mmol/L (3.5-5.1) 09/24/23 07:
Chloride 114 mmol/L (98-107) H 09/24/23 07:01
Carbon Dioxide 23 mmol/L (22-30) 09/24/23 07:01
BUN 15 mg/dl (7-17) 09/24/23 07:01
Creatinine 0.7 mg/dL (0.6-1.0) 09/24/23 07:01
Calcium 9.8 mg/dl (8.4-10.2) 09/24/23 07:
Total Bilirubin 0.6 mg/dl (0.2-1.3) 09/24/23 07:01
AST 146 U/L (14-36) H 09/24/23 07:01
ALT 64 U/L (0-35) H 09/24/23 07:01
Alkaline Phosphatase 75 U/L (38-126) 09/24/23 07:01
Lipase Cancelled 09/24/23 07:12
Diagnostic Image Results:
08/18 CT without IV or oral : Possible 2 mm distal left ureteral stone versus a phlebolith. No evidence of obstruction. Stable suggesting more likely a phlebolith..
09/23 CT A/p IV only
Distended gallbladder with intra and extrahepatic biliary ductal dilation. The common bile duct measures 1.0 cm. Although no discrete stone is visualized finding are suspicious for choledocholithiasis and possible cholecystitis. Consider ultrasound
for further evaluation.
09/23 US abdomen --Cholelithiasis with gallbladder distention, but no sonographic evidence of acute cholecystitis. There is also mild intrahepatic and extrahepatic biliary ductal dilatation without sonographic evidence of choledocholithiasis.
Consider further evaluation with MRCP.
Prior GI Procedures:
EGD: denies
Colonoscopy: Dr. Lewis at [facility] 20 years ago recalls as Hyperplastic polyps as saw for IBS in past.
Assessment / Plan
-
Pt is a 42yo with hx PVC's, anxiety, Sarcoidosis, small fiber neuropathy, Headaches, Arnold Chiari Malformation, Dizziness, Menorrhagia, Renal calculus several recent ER visits. She had eval 09/10 with withdrawal symptoms from Tramadol with
decreasing dose she was taking for Neuropathy with nausea and jitters. She returned 09/13 with upper abdominal pain with diarrhea and now returns with continued abdominal pain. Pt is noted with leukocytosis and increased LFT's with initially normal
labs now bili 06, AST 146, ALT 64 and alk phos 75 with lipase 374. She had several imaging studies with non contrast CT 08/18 with Possible 2 mm distal left ureteral stone versus a phlebolith, CT a/p 09/23 with distended GB with intra and
extrahepatic ductal dilation CBD 1 cm no stone seen possible cholecystitis 09/23 US with cholelithiasis with GB distention no acute cholecystitis but intrahepatic/extrahepatic dilatation without choledocholithiasis t/c MRCP.
-abdominal pain
-elevated LFT's and lipase
-cholelithiasis/GB distention on US
-intra and extrahepatic ductal dilatation, CBD 1 cm
-possible cholecystitis on CT no seen on US
-leukocytosis
-wt loss with recent Wegovy use/stress with of father
other med problems:
-PVC's
-anxiety
-sarcoidosis
-neuropathy
-headaches
-Arnold Chiari malformation
-renal stone
-menorrhagia
PLAN:
Etiology of symptoms related to Gb disease, choledocholithiasis, biliary colic vs other -- may be precipitated with recent wt loss/wegovy use
will check follow up MRI/MRCP
pt improved with pain meds and antiemetic in ER
trend LFT's and pain
currently off Wegovy stopped in August
will follow
family updated
-
-
-
Thank you for consultation and allowing me to participate in the patient's care. Please call the coke production heater GI physician during the after hours with any questions or concerns.
--- NOTE | 2023-09-24 12:17 | HPS.HSE ---
Addendum entered and electronically signed by Magy Mckinney MD 09/24/23 15:14:
42-year-old female had eaten out yesterday woke up with nausea vomiting and upper quadrant pain.
I saw and examined the patient.
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
CVS: S1-S2 normal
Chest: CTA B/L
Abdomen: Soft, tenderness, RUQ and Epigastric area,Bowel sounds present
Extremities: No edema
Ultrasound of the abdomen-cholelithiasis with gallbladder distention no evidence of acute cholecystitis. Mild intrahepatic and extrahepatic biliary ductal dilatation without sonographic evidence of choledocholithiasis.
CT scan of the abdomen and pelvis with IV contrast-distended gallbladder with intra and extrahepatic biliary dilatation. CBD 1 cm. No discrete stone visualized
# Abdominal pain
Elevated LFTs
Mild elevation in lipase
Unclear gastroenteritis versus secondary to biliary reasons
Keep n.p.o. with IV fluids
Pain control
MRI
GI evaluation
Continue PPI
# Chronic neuropathy with history of prior shingles-continue gabapentin she is on a high dose of 200 , three times daily
# History of Chiari malformation with decompression surgery at age 33 at [facility]
# Anxiety Disorder.-Continue Celexa and Topamax
# Pulm Sarcoidosis- Not active
# Active smoker- Cessation counselling done.
# DVT prophylaxis-Subcutaneous Lovenox
# Full CODE
D/W RN at bed side
Original Note:
Family Physician
-
Family Physician: Nadiya Acevedo
Chief Complaint
-
Abdominal pain, nausea, vomiting
History of Present Illness
42-year-old female who states at 645 last night she had Nigerian chicken and broccoli with lo mein. She woke up at 4 AM with nausea, vomiting and right upper quadrant abdominal pain that has persisted. She denies history of gallstones or family
history. She denies fever, chills, chest pain, palpitations, shortness with, cough, diarrhea, urinary symptoms. She has past medical history of Chiari malformation with decompression surgery at age 33 [facility], neuropathy to arms hand and
face from prior shingles, anxiety.
Medical History
Past Medical History
Past Medical History: Reports Other
Additional Past Medical History:
Chiari malformation with decompression surgery at age 33 [facility],
neuropathy to arms hand and face from prior shingles,
anxiety.
Past Surgical History: Reports Other
Additional Past Surgical History:
Chiari malformation with decompression age 33 [facility]
Social History
Tobacco: Smoker (1/2 pack/day total 12 years smoking for the last 8 years straight)
Alcohol: None
Drug: None
Personal:
Living: With Family
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
Family History
Family History: Other (Mother hypertension, father lung cancer also history HTN HLD)
Allergies / Home Medications
Allergies reflects when Allergies were last updated in [facility] [employer].
Home Medications with original date entered in [facility]
Allergy/Medication List:
Allergies
Allergy/AdvReac Type Severity Reaction Status Date / Time
levofloxacin [From Levaquin] Allergy TACHYCARDIA Verified 09/24/23 06:45
morphine Allergy severe Verified 09/24/23 06:45
headaches
ondansetron HCl [From Zofran] Allergy RASH AND Verified 09/24/23 06:45
HEADACHE
Home Medications
citalopram 40 mg tablet (Celexa) 40 mg PO DAILY Mental Health/Anxiety 04/19/08
diphenhydramine HCl 50 mg capsule 50 mg PO HS Allergies 09/26/22
topiramate 200 mg tablet (Topamax) 200 mg PO HS Mental Health/Anxiety 09/26/22
acetaminophen 325 mg tablet (Tylenol) 650 mg PO PRN PRN pain 10/01/22
acetaminophen 325 mg tablet 650 mg (2 x 325 mg) PO Q4HPRN PRN mild pain #20 tabs 10/04/22
gabapentin 1,200 mg PO TID 09/24/23
Review of Systems
-
History Source: Patient
A 12 point ROS was completed and negative except as noted: Yes
Constitutional: Denies Fever or Chills
EENT: Denies Runny Nose
Respiratory: Denies Cough or Trouble Breathing
Abdomen/GI: Reports Abdominal Pain (Right upper quadrant), Nausea and Vomiting; Denies Diarrhea, Constipated or Bloody Stools
: Denies Dysuria, Frequency, Flank Pain, Incontinence or Difficulty Voiding
Musculoskeletal: Denies Joint Pain or Edema
Skin: Denies Itching or Rash
Neurological: Denies Dizzy, Headache or Weakness
Endocrine: Reports No Symptoms
Hematologic/Lymphatic: Reports No Symptoms
Psych: Reports Calm
Physical Exam
Vital Signs
Vital Signs
Temp Pulse Resp BP Pulse Ox
98.3 F 70 18 122/76 100
09/24/23 06:45 09/24/23 09:32 09/24/23 09:32 09/24/23 09:32 09/24/23 09:32
Physical Exam
General: Pain; No Fever or Chills
HEENT: NormoCephalic, Anicteric, PERRLA, [place] Conjunctivae and No Ptosis
Respiratory: Clear; No Wheezes, Rales or Rhonchi
Cardiac: S1/S2 and Regular Rhythm; No Murmur, Rub, Gallop or Peripheral Edema
Breast: Deferred by me
GI: Soft, Non Distended, Normal Bowel Sounds, Tender (Right upper quadrant) and No Hepatosplenomegaly
Genito-urinary: Deferred by me
Musculoskeletal: No Clubbing, No Cyanosis and No Edema
Skin: Warm and Dry; No Rash
Neuro: AO x 3, No Motor Deficits, Nonfocal/grossly intact, Cranial Nerves Intact and No Sensory Deficits; No Slurred Speech, Facial Droop or Tremors
Psych: Calm
Laboratory Results
-
09/24/23 07:01
09/24/23 07:01
Laboratory Results
Total Bilirubin 0.6 mg/dl (0.2-1.3) 09/24/23 07:01
AST 146 U/L (14-36) H 09/24/23 07:01
ALT 64 U/L (0-35) H 09/24/23 07:01
Alkaline Phosphatase 75 U/L (38-126) 09/24/23 07:01
Lipase Cancelled 09/24/23 07:12
Impression/Plan
-
Impression/plan:
Admit to MedSurg
#Abdominal pain secondary to biliary ductal dilatation concern for obstructing CBD stone
-N.p.o.
-MRCP with and without contrast
-Consult GI
-IV PPI
-IV Compazine as patient has allergy to Zofran, IV pain control Dilaudid nonsevere pain, IV Toradol mild pain
-IV NSS 100 cc/hr
-Follow CBC, CMP
Abdominal ultrasound:
Cholelithiasis with gallbladder distention, but no sonographic evidence of acute cholecystitis. There is also mild intrahepatic and extrahepatic biliary ductal dilatation without sonographic evidence of choledocholithiasis.
Consider further evaluation with MRCP.
CT abdomen pelvis with IV contrast: Distended gallbladder with intra and extrahepatic biliary ductal dilation. Common bile duct 1.0 cm although no discrete stone visualized
#Active smoker
1/2 pack a day total 12 pack years has been smoking consistently last 8 years
-Cessation advised
#Hx Chiari malformation with decompression surgery age 33 [facility]
#Chronic neuropathy to arms, face, hands secondary to prior shingles
- continue gabapentin 1200 mg 3 times daily
#Anxiety
-Continue Celexa 40 mg at bedtime, Topamax 200 mg at bedtime
DVT prophylaxis
Subcu Lovenox
Full code
--- NOTE | 2023-09-24 13:10 | EDRN ---
Report sent to unit spoke to Alem
[2023-09-24] MEDS: DILAUDID 1 MG IV ×2 (14:29→20:15)
[2023-09-24] MEDS: NEURONTIN 1200 MG PO ×2 (17:21→21:18)
[2023-09-24] MEDS: LOVENOX 40 MG SC (17:21)
[2023-09-24] MEDS: TOPAMAX 200 MG PO (21:18)
[2023-09-24] MEDS: BENADRYL 50 MG PO (21:18)
[2023-09-25] MEDS: NSS 1000 IV ×3 (00:44→23:55)
[2023-09-25] MEDS: DILAUDID 1 MG IV ×6 (02:32→23:50)
[2023-09-25] MEDS: COMPAZINE 5 MG IV (06:21)
[2023-09-25] MEDS: BENADRYL 25 MG IV (06:21)
[2023-09-25 07:45] VITALS: BP 110/70
[2023-09-25] MEDS: NEURONTIN 1200 MG PO ×3 (08:16→21:42)
[2023-09-25] MEDS: PROTONIX IV 40 MG IV (08:17)
[2023-09-25] MEDS: CELEXA 40 MG PO (08:17)
[2023-09-25 08:21] LABS: % Basophils 1.1 % (0-2); % Eosinophils 5.3 % (0-6); % Immature Granulocytes 0.4 % (0-0.5); % Lymphocytes 22.5 % (20.5-51.1); % Monocytes 9.9 % (1.7-9.3); % Neutrophils 60.8 % (42.2-75.2); Absolute Basophils 0.1 10^3/uL (0-0.2); Absolute Eosinophils 0.3 10^3/uL (0-0.7); Absolute Lymphocytes 1.3 10^3/uL (1.2-3.4); Absolute Monocytes 0.6 10^3/uL (0.1-0.6); Absolute Neutrophils 3.4 10^3/uL (1.4-6.5); Hemoglobin 11.8 g/dL (12.0-16.0); Mean Corp Hgb Conc. 33.7 g/dL (33.0-37.0); Mean Corpuscular Hgb 30.3 pg (27.0-31.0); Mean Corpuscular Volume 89.7 fL (81.0-99.0); Mean Platelet Volume 11.1 fL (7.4-10.4); Nucleated Red Blood Cells % 0 %; Platelet Count 227 10^3/uL (130-400); Red Cell Dist. Width 15.9 % (11.5-14.5); White Blood Cell Count 5.7 10^3/uL (4.8-10.8)
[2023-09-25 08:46] LABS: ALT (SGPT) 508 U/L (0-35); AST (SGOT) 537 U/L (14-36); Albumin 3.7 g/dl (3.5-5.0); Alkaline Phosphatase 93 U/L (38-126); Blood Urea Nitrogen 11 mg/dl (7-17); Calcium 8.8 mg/dl (8.4-10.2); Carbon Dioxide 19 mmol/L (22-30); Chloride 111 mmol/L (98-107); Estimated Creatinine Clearance 119 ml/min; Glucose 89 mg/dl (70-99); Lipase 199 U/L (23-300); Potassium 4.2 mmol/L (3.5-5.1); Sodium 137 mmol/L (135-145); Total Bilirubin 0.9 mg/dl (0.2-1.3); Total Protein 6.1 g/dl (6.3-8.2); eGFR > 60.00
--- NOTE | 2023-09-25 10:32 | CM ---
IA completed obtained by .
Dx: abdominal pain CBD duct dilation concern CBD stone.
PMH: Chiari malfunction, shingles, anxiety, pulmonary sarcoidosis not active.
Attends [facility] 5 days a week as outpatient.
Patient at [facility].
Patient lives in a 2 story home with 1 step to enter and 12 steps to 2nd floor.
Does report has bedroom and bathroom on 1st floor.
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
PCP: Nadiya Acevedo
Pharmacy: [facility]
PLAN: Discharge home when stable. Currently no needs identified.
[2023-09-25] MEDS: ZOSYN 50 IV ×2 (14:35→19:56)
--- NOTE | 2023-09-25 14:54 | W.PN.HOSP.TC ---
Addendum entered and electronically signed by Magy Mckinney MD 09/25/23 15:36:
correction -The E COMMERCE SPECIALIST or PA's note was reviewed and I agree with the note. Should be Resident's notes and assessment and plan. Agree with that
Addendum entered and electronically signed by Magy Mckinney MD 09/25/23 15:35:
2-year-old female had eaten out yesterday woke up with nausea vomiting and upper quadrant pain.
I saw and examined the patient.
The E COMMERCE SPECIALIST or PA's note was reviewed and I agree with the note.
CVS: S1-S2 normal
Chest: CTA B/L
Abdomen: Soft, tenderness, RUQ ,Bowel sounds present
Extremities: No edema
Ultrasound of the abdomen-cholelithiasis with gallbladder distention no evidence of acute cholecystitis. Mild intrahepatic and extrahepatic biliary ductal dilatation without sonographic evidence of choledocholithiasis.
CT scan of the abdomen and pelvis with IV contrast-distended gallbladder with intra and extrahepatic biliary dilatation. CBD 1 cm. No discrete stone visualized
MRI/MRCP-no MRCP evidence of choledocholithiasis. Cholelithiasis with mild diffuse gallbladder wall thickening
# Abdominal pain
Elevated LFTs
Likely acute cholecystitis
Keep n.p.o. with IV fluids
Pain control
MRI/MRCP noted-no choledocholithiasis.
Start IV Zosyn
GI evaluation appreciated
Surgical eval for Lap david
Continue PPI
# Chronic neuropathy with history of prior shingles-continue gabapentin she is on a high dose of 200 , three times daily
# History of Chiari malformation with decompression surgery at age 33 at [facility]
# Anxiety Disorder.-Continue Celexa and Topamax
# Pulm Sarcoidosis- Not active
# Active smoker- Cessation counselling done.
# DVT prophylaxis-Subcutaneous Lovenox
# Full CODE
D/W RN at bed side
D/W Surgeon
D/W GI
Original Note:
Today's Communication/Plan
-
Plans for cholecystectomy when OR available
keep n.p.o.
Assessment / Plan
Assessment / Plan
Impression: 42-year-old female with right upper quadrant pain, nausea and vomiting
Ultrasound of the abdomen-cholelithiasis with gallbladder distention no evidence of acute cholecystitis. Mild intrahepatic and extrahepatic biliary ductal dilatation without sonographic evidence of choledocholithiasis.
CT scan of the abdomen and pelvis with IV contrast-distended gallbladder with intra and extrahepatic biliary dilatation. CBD 1 cm. No discrete stone visualized
MRI- No MRCP evidence for choledocholithiasis. Cholelithiasis and mild diffuse gallbladder wall thickening. Nonspecific, but recommend clinical correlation for acute cholecystitis.
#Abdominal pain
Elevated LFTs AST 537 ALT 508
Will order hepatitis panel
Mild lipase elevation
Keep n.p.o. with IV fluids
Continue pain control
Imaging shows cholelithiasis diagnosis but no evidence of acute cholecystitis or choledocholithiasis per imaging noted above
Surgery consulted. Although no evidence of choledocholithiasis on MRI, cholelithiasis and mild diffuse gallbladder wall thickening with very symptomatic abdominal pain in patient. Surgery will schedule patient for cholecystostomy
# Chronic neuropathy with history of prior shingles-continue gabapentin
# History of Chiari malformation with decompression surgery at age 33 at [facility]
# Anxiety Disorder.-Continue Celexa and Topamax
# Pulm Sarcoidosis- Not active
# Active smoker- Cessation counselling done.
#Hx hysterectomy
# DVT prophylaxis- Subcutaneous Lovenox
# Full CODE
Anticipated Discharge: 24 - 48 hours
Subjective/Interval History
-
Date of Service: September 25, 2023
Objective Data
-
Labs:
Laboratory Results
09/25/23
06:33
WBC 5.7
Hgb 11.8 L
Hct 35.0 L
Plt Count 227 D
Sodium 137
Potassium 4.2
Chloride 111 H
Carbon Dioxide 19 L
BUN 11
Creatinine 0.6
Glucose 89
Calcium 8.8
Total Bilirubin 0.9
AST 537 H*
ALT 508 H*
Alkaline Phosphatase 93
Vital Signs:
Vital Signs
Temp Pulse Resp BP Pulse Ox
98.1 F 80 21 110/70 99
09/25/23 07:45 09/25/23 07:45 09/25/23 07:45 09/25/23 07:45 09/25/23 07:45
I&O
09/24/23 09/25/23 09/26/23
06:59 06:59 06:59
Intake Total 1300 / 1300
Balance 1300 / 1300
Review of Systems
-
History Source: Patient
EENT: Reports No Symptoms Reported
Respiratory: Reports No Symptoms
Cardiac: Reports No Symptoms
Abdomen/GI: Reports Abdominal Pain, Nausea and Vomiting (last night ); Denies Diarrhea, Constipated or Bloody Stools
Genitourinary: Reports No Symptoms
Musculoskeletal: Reports No Symptoms
Skin: Reports No Symptoms
Neuro: Reports No Symptoms
Physical Exam
-
General: Appears in Distress and Pain
Respiratory: Clear to Auscultation
Cardiac: Regular Rhythm and S1/S2
GI: Soft and Tender (RUQ and epigastric region); Negative Distended
Musculoskeletal: No Edema
Skin: Warm and Dry
Neuro: AO x 3
Psych: Calm
--- NOTE | 2023-09-25 15:02 | CON.GS ---
Addendum entered and electronically signed by Meño Wiggins MD 09/25/23 15:40:
Patient is a 42 yo F with a PMH of sarcoidosis, Chiari malformation s/p decompressive surgery at [facility], on neuropathy, s/p x 3, and s/p YANIQUE who presents with intermittent RUQ abdominal pain. Ms. Ortiz reports that she has had
multiple prior attacks over the past several months and years. Episodes occur with fatty food intake. Most recent episode began yesterday and was after eating [place] food. She also reports a 50 pound weight loss since April, and she denies any
signs of family stress. She notes intermittent episodes of pale stools and dark urine. No fevers or chills. No nausea or vomiting. Currently she states that her pain is improved but not resolved.
Gen: NAD
Abd: soft, tender to palpation in RUQ, ND, non-peritoneal
Labs, ultrasound, and MRCP reviewed
Patient is a 42 yo F p/w choledocholithiasis versus acute on chronic cholecystitis
The natural history and pathophysiology of biliary and stone disease was briefly reviewed. Labs would indicate possible choledocholithiasis. MRI negative. Persistent abdominal pain. Recommend cholecystectomy, timing TBD. Continue with NPO, IV
fluids, and antibiotics. Repeat labs in the AM. All questions answered.
-- Recommend cholecystectomy, timing TBD.
-- Continue with NPO, IV fluids, and antibiotics.
-- Repeat labs in the AM
Original Note:
Consultation
-
Date/Time Consultation Requested: 09/25/23 1222
Requesting Provider: Triny Arevalo
Medical History
-
Chief Complaint: abdominal pain
History of Present Illness:
42 female with a h/o Chiari malformation with decompression surgery, neuropathy, sarcoidosis, x3, YANIQUE who presented yesterday after awakening with RUQ pain early in the morning around 4 am with nausea and vomiting. She notes a high fat
meal the night before of [place] take out. She has had episodes of similar pain over the past year which have been self resolving. With some of these episodes, she has noted pale stools and dark urine but not with this current episode. She presented
earlier this month with upper abdominal pain into the chest and was discharged from the ED as she had resolution of pain with plans for outpatient follow up. She also reports weight loss of >50lbs since April due to a combination of Wegovy and
stress as her father recently . She has been off Wegovy for about 6 weeks. Currently, she has RUQ pain with tenderness. She
Past Medical History
Past Medical History: Other (Sarcoidosis, Neuropathy, Weight loss of >50lbs since April, Nephrolithiasis)
Past Surgical History: Other ( History of Chiari malformation with decompression surgery at age 33 at [facility])
Social History
Tobacco: Smoker (02/10 ppd)
Alcohol: None
Living: With Family
Family History
Family History: Reviewed & Not Pertinent
Allergies / Home Medications
Allergy/AdvReac Type Severity Reaction Status Date / Time
levofloxacin [From Levaquin] Allergy TACHYCARDIA Verified 09/24/23 06:45
morphine Allergy severe Verified 09/24/23 06:45
headaches
ondansetron HCl [From Zofran] Allergy RASH AND Verified 09/24/23 06:45
HEADACHE
�Medication �Instructions �Recorded �Confirmed �Type
citalopram 40 mg tablet (Celexa) 40 mg PO DAILY Mental 04/19/08 09/24/23 History
Health/Anxiety
diphenhydramine HCl 50 mg capsule 50 mg PO HS Allergies 09/26/22 09/24/23 History
topiramate 200 mg tablet (Topamax) 200 mg PO HS Mental Health/Anxiety 09/26/22 09/24/23 History
acetaminophen 325 mg tablet 650 mg PO PRN PRN pain 10/01/22 09/24/23 History
(Tylenol)
acetaminophen 325 mg tablet 650 mg (2 x 325 mg) PO Q4HPRN PRN 10/04/22 09/24/23 Rx
mild pain #20 tabs
gabapentin 1,200 mg PO TID Pain 09/24/23 09/24/23 History
Review of Systems
-
History Source: Patient and Family
All other systems: Negative unless noted
A 10 point review of systems was completed, and was negative except as per HPI.
Physical Exam
Vital Signs
Temp Pulse Resp BP Pulse Ox
98.1 F 80 21 110/70 99
09/25/23 07:45 09/25/23 07:45 09/25/23 07:45 09/25/23 07:45 09/25/23 07:45
09/24/23 09/25/23 09/26/23
06:59 06:59 06:59
Actual Weight 76 kg 74.899 kg
Body Mass Index (BMI) 25.9
Lab Results
09/25/23 06:33
09/25/23 06:33
WBC 5.7 10^3/uL (4.8-10.8) 09/25/23 06:33
Hgb 11.8 g/dL (12.0-16.0) L 09/25/23 06:33
Hct 35.0 % (37.0-47.0) L 09/25/23 06:33
Plt Count 227 10^3/uL (130-400) D 09/25/23 06:33
Abs Immat Gran (auto) 0.0 10^3/uL (0-0.05) 09/25/23 06:33
Neutrophils % 60.8 % (42.2-75.2) 09/25/23 06:33
Physical Exam
General: Well Developed and Well Nourished
HEENT: Moist Mucous Membranes
Respiratory: Non Labored Respirations
GI: Soft, Non Distended and Tender (RUQ)
Skin: Warm and Dry; Negative Jaundice
Neuro: Awake, Alert and AO x 3
Psych: Calm
Data Reviewed
-
Radiology: Image Personally Visualized and interpreted, Report Reviewed by me, Discussed with Physician and Discussed with Patient
CT Scan: Image Personally Visualized and interpreted, Report Reviewed by me, Discussed with Physician and Discussed with Patient
MRI: Image Personally Visualized and interpreted, Report Reviewed by me, Discussed with Physician and Discussed with Patient
Labs: Labs Reviewed by me, Discussed with Physician and Discussed with Patient
Old Records: Reviewed
Assessment / Plan
-
42 yo female with recurrent RUQ pain which has persisted for the last 36 hours with gallbladder distention and stones on imaging. MRCP this admission without choledocholithiasis. No pericholecystic stranding/edema. Leukocytosis present on admission
and now resolved on ABX. Transaminitis present and AST/ALT rising. Bilirubin remains normal. Lipase was minimally elevated on admission and now returned to normal. She is afebrile with stable vital signs. RUQ tender on exam. Recurrent biliary colic
with likely chronic cholecystitis possible acute component given leukocytosis on presentation. AFVSS.
--Plan laparoscopic cholecystectomy either today vs tomorrow pending OR availability
--Continue NPO
--Continue IV abx
--Trend labs
--Continue IVF while NPO
--Analgesics/Antiemetics
[2023-09-25 15:44] VITALS: BP 117/76
--- NOTE | 2023-09-25 16:29 | W.PN.GI.CBS2 ---
Today's Communication / Plan
-
Surgery consultation for cholecystectomy
Assessment / Plan
-
Pt is a 42yo with hx PVC's, anxiety, Sarcoidosis, small fiber neuropathy, Headaches, Arnold Chiari Malformation, Dizziness, Menorrhagia, Renal calculus several recent ER visits. She had eval 09/10 with withdrawal symptoms from Tramadol with
decreasing dose she was taking for Neuropathy with nausea and jitters. She returned 09/13 with upper abdominal pain with diarrhea and now returns with continued abdominal pain. Pt is noted with leukocytosis and increased LFT's with initially normal
labs now bili 06, AST 146, ALT 64 and alk phos 75 with lipase 374. She had several imaging studies with non contrast CT 08/18 with Possible 2 mm distal left ureteral stone versus a phlebolith, CT a/p 09/23 with distended GB with intra and
extrahepatic ductal dilation CBD 1 cm no stone seen possible cholecystitis 09/23 US with cholelithiasis with GB distention no acute cholecystitis but intrahepatic/extrahepatic dilatation without choledocholithiasis t/c MRCP.
-abdominal pain
-elevated LFT's and lipase
-cholelithiasis/GB distention on US
-intra and extrahepatic ductal dilatation, CBD 1 cm
-possible cholecystitis on CT no seen on US
-leukocytosis
-wt loss with recent Wegovy use/stress with of father
other med problems:
-PVC's
-anxiety
-sarcoidosis
-neuropathy
-headaches
-Arnold Chiari malformation
-renal stone
-menorrhagia
MRI/MRCP 09/24
IMPRESSION:
1. No MRCP evidence for choledocholithiasis.
2. Cholelithiasis and mild diffuse gallbladder wall thickening. Nonspecific, but recommend clinical correlation for acute cholecystitis.
plan
Follow-up with surgical recommendation at this point
Trend LFT
GI will sign off. Please call us back if any questions
Total Time Spent with Patient (in minutes): 35
Subjective
Subjective
Date of Service: September 25, 2023
Continues to have right upper quadrant abdominal pain
Objective
Data Reviewed
Laboratory Data:
Laboratory Results
09/25/23 06:33
09/25/23 06:33
Laboratory Results
Total Bilirubin 0.9 mg/dl (0.2-1.3) 09/25/23 06:33
AST 537 U/L (14-36) H* 09/25/23 06:33
ALT 508 U/L (0-35) H* 09/25/23 06:33
Alkaline Phosphatase 93 U/L (38-126) 09/25/23 06:33
Lipase 199 U/L (23-300) 09/25/23 06:33
Vital Signs and I&O:
Vital Signs
Temp Pulse Resp BP Pulse Ox
98.4 F 64 20 117/76 100
09/25/23 15:44 09/25/23 15:44 09/25/23 15:44 09/25/23 15:44 09/25/23 15:44
I&O
09/24/23 09/25/23 09/26/23
06:59 06:59 06:59
Intake Total 1300 / 1300
Balance 1300 / 1300
Physical Exam
Physical Exam
GI: Soft, Non Distended and Tender
[2023-09-25 16:36] VITALS: BMI 25.9
[2023-09-25 16:53] LABS: Hepatitis B Surface Antigen Negative (Negative)
[2023-09-25 17:11] LABS: Hepatitis B Surface Antibody Positive; Hepatitis C Antibody Negative (Negative)
[2023-09-25] MEDS: LOVENOX 40 MG SC (17:13)
[2023-09-25] MEDS: BENADRYL 50 MG PO (21:42)
[2023-09-25] MEDS: TOPAMAX 200 MG PO (21:43)
[2023-09-25 23:00] VITALS: BP 137/83
[2023-09-26] VITALS (11 sets, daily range): BP systolic 111–141; BP diastolic 66–78
[2023-09-26] MEDS: ZOSYN 50 IV ×2 (02:27→07:46)
[2023-09-26] MEDS: DILAUDID 1 MG IV ×2 (04:20→08:22)
[2023-09-26 07:24] LABS: % Basophils 1.1 % (0-2); % Eosinophils 3.6 % (0-6); % Immature Granulocytes 0.5 % (0-0.5); % Neutrophils 68.8 % (42.2-75.2); Absolute Basophils 0.1 10^3/uL (0-0.2); Absolute Eosinophils 0.2 10^3/uL (0-0.7); Absolute Lymphocytes 1.3 10^3/uL (1.2-3.4); Absolute Monocytes 0.5 10^3/uL (0.1-0.6); Absolute Neutrophils 4.5 10^3/uL (1.4-6.5); Hematocrit 33.8 % (37.0-47.0); Hemoglobin 11.3 g/dL (12.0-16.0); Mean Corp Hgb Conc. 33.4 g/dL (33.0-37.0); Mean Corpuscular Hgb 29.2 pg (27.0-31.0); Mean Corpuscular Volume 87.3 fL (81.0-99.0); Mean Platelet Volume 10.3 fL (7.4-10.4); Nucleated Red Blood Cells % 0 %; Platelet Count 236 10^3/uL (130-400); Red Blood Cell Count 3.87 10^6/uL (4.20-5.40); White Blood Cell Count 6.6 10^3/uL (4.8-10.8)
[2023-09-26] MEDS: CELEXA 40 MG PO (07:46)
[2023-09-26] MEDS: PROTONIX IV 40 MG IV (07:46)
[2023-09-26 08:08] LABS: ALT (SGPT) 340 U/L (0-35); AST (SGOT) 191 U/L (14-36); Albumin 3.8 g/dl (3.5-5.0); Alkaline Phosphatase 95 U/L (38-126); Blood Urea Nitrogen 10 mg/dl (7-17); Calcium 8.9 mg/dl (8.4-10.2); Carbon Dioxide 18 mmol/L (22-30); Chloride 108 mmol/L (98-107); Estimated Creatinine Clearance 102 ml/min; Glucose 69 mg/dl (70-99); Potassium 3.9 mmol/L (3.5-5.1); Sodium 136 mmol/L (135-145); Total Bilirubin 0.8 mg/dl (0.2-1.3); Total Protein 6.5 g/dl (6.3-8.2); eGFR > 60.00
[2023-09-26] MEDS: NEURONTIN PO (09:24)
--- NOTE | 2023-09-26 11:42 | W.PN.UPDATE ---
Update Note
Progress Note Update
She was scheduled for cholecystectomy yesterday but due to the OR availability, it was moved to this morning. I reviewed her medical record, imaging, and examined the patient. She continues with pain in the right upper quadrant but is afebrile
with a normal white count. An ultrasound reveals multiple gallstones without evidence of acute cholecystitis. Her liver function test (transaminases) are slightly elevated but improving, her bilirubin remains normal. MRCP was negative for
choledocholithiasis. On physical exam she is nontender.
I reviewed the treatment options including nonoperative management versus surgery, i.e. a cholecystectomy. We discussed the risks and benefits of each and she wishes to proceed with surgery. The plan is for a minimally invasive cholecystectomy
(robotic or laparoscopic depending upon OR availability, possible open surgery). I reviewed the procedure as well as the risks and benefits. Risks include, but are not limited to, bleeding, infection, adhesions, hernias, injury to other
structures, DVT, cardiopulmonary complications, persistent pain, and other causes of LFT elevation. I also reviewed the typical recovery and functional results. Arrangements are in progress for the OR.
--- NOTE | 2023-09-26 11:44 | W.IMMPOSTOP ---
Surgical Immed Post Op Note
-
Primary Surgeon: Carlos Ugalde MD
Superintendent Laundry: LUZ Lam
Pre-op Diagnosis: Chronic cholecystitis
Post-op Diagnosis: Same
Procedure Performed: Laparoscopic cholecystectomy
Anesthesia Type: GET
Specimen / Cultures: Gallbladder
Estimated Blood Loss: 50cc
Complications: None
Operative Findings: Distended, noninflamed gallbladder
Patient's updated.
[2023-09-26] MEDS: DILAUDID 0.5 MG IV (11:55)
[2023-09-26] MEDS: TORADOL 15 MG IV (11:59)
--- NOTE | 2023-09-26 12:00 | CM ---
OR today for Lap david.
CM will follow for d/c needs.
Plan: home no needs.
[2023-09-26] MEDS: COMPAZINE 5 MG IV (12:14)
[2023-09-26] MEDS: NSS IV ×2 (12:43→15:57)
[2023-09-26] MEDS: ROXICODONE 5 MG PO (13:16)
--- NOTE | 2023-09-26 13:34 | PTCARENOTE ---
Pt transferred back to room 418-2 from PACU after lap david procedure. 5 lap sites to abdomen, approximated, sealed with surgical glue. Pt complaining of 10/10 pain to abdomen, PRN oxycodone administered - see APR. Pt voided in BSC with x1
assistance, educated about diet and menu and ice chips provided. Plan of care ongoing.
--- NOTE | 2023-09-26 15:10 | W.PN.HOSP.TC ---
Today's Communication/Plan
-
Discharge if she tolerates diet and pain manageable.
Assessment / Plan
Assessment / Plan
CVS: S1-S2 normal
Chest: CTA B/L
Abdomen:Lap wounds stable, Mild discomdfort.
Extremities: No edema
Ultrasound of the abdomen-cholelithiasis with gallbladder distention no evidence of acute cholecystitis. Mild intrahepatic and extrahepatic biliary ductal dilatation without sonographic evidence of choledocholithiasis.
CT scan of the abdomen and pelvis with IV contrast-distended gallbladder with intra and extrahepatic biliary dilatation. CBD 1 cm. No discrete stone visualized
MRI/MRCP-no MRCP evidence of choledocholithiasis. Cholelithiasis with mild diffuse gallbladder wall thickening
# Acute on chronic cholecystitis
Elevated LFTs
Status post laparoscopic cholecystectomy 09/26/2023
Start diet
Pain control
MRI/MRCP noted-no choledocholithiasis.
On IV Zosyn- Stop
# Chronic neuropathy with history of prior shingles-continue gabapentin she is on a high dose of 200 , three times daily
# History of Chiari malformation with decompression surgery at age 33 at [facility]
# Anxiety Disorder.-Continue Celexa and Topamax
# Pulm Sarcoidosis- Not active
# Active smoker- Cessation counselling done.
# DVT prophylaxis-Subcutaneous Lovenox
# Full CODE
D/W Surgeon
With family at bedside.
Patient anxious to go home today. Gave her the option to stay overnight to manage symptoms however she really wants to go home today.
Discussed with nursing to have the patient have p.o.'s and make sure she tolerates prior to discharge.
Anticipated Discharge: Today
Subjective/Interval History
-
Date of Service: September 26, 2023
Objective Data
-
Labs:
Laboratory Results
09/26/23
06:46
WBC 6.6
Hgb 11.3 L
Hct 33.8 L
Plt Count 236
Sodium 136
Potassium 3.9
Chloride 108 H
Carbon Dioxide 18 L
BUN 10
Creatinine 0.7
Glucose 69 L
Calcium 8.9
Total Bilirubin 0.8
AST 191 H
ALT 340 H
Alkaline Phosphatase 95
Vital Signs:
Vital Signs
Temp Pulse Resp BP Pulse Ox
99.9 F 86 16 115/67 99
09/26/23 13:31 09/26/23 13:31 09/26/23 13:31 09/26/23 13:31 09/26/23 13:31
I&O
09/25/23 09/26/23 09/27/23
06:59 06:59 06:59
Intake Total 1300 / 1300 1000 / 1000 250 / 250
Balance 1300 / 1300 1000 / 1000 250 / 250
--- NOTE | 2023-09-26 15:28 | W.DS.TRANS ---
Addendum entered and electronically signed by Magy Mckinney MD 09/26/23 15:55:
Dictation- [id number]
Original Note:
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
-
Discharge Instructions:
Discharge Diagnosis/Procedures Cholecystitis status post laparoscopic
cholecystectomy 09/26/2023
Neuropathy
History of Chiari malformation with surgery
Anxiety
Pulmonary sarcoidosis
Diet Low Fat
Activity No strenuous activity
Additional Activity Do not lift over 15 lbs for the next 3-4 weeks
Driving Restrictions No driving for 24 hours
Bathing Restrictions OK to Shower
Blood Work CMP 7 to 10 days
Wound Care Ok to shower and wash incisions gently with soap
and water. Allow the glue over your incisions
to flake off on their own in 2-3 weeks, avoid
picking or scrubbing off
Instructions:
Stand-Alone Forms:
Changes to Home Medications: Yes
Discharge Medications:
DC Medications w/original date entered in [facility]
citalopram 40 mg tablet (Celexa) 40 mg PO DAILY Mental Health/Anxiety 04/19/08
diphenhydramine HCl 50 mg capsule 50 mg PO HS Allergies 09/26/22
topiramate 200 mg tablet (Topamax) 200 mg PO HS Mental Health/Anxiety 09/26/22
acetaminophen 325 mg tablet (Tylenol) 650 mg PO PRN PRN pain 10/01/22
acetaminophen 325 mg tablet 650 mg (2 x 325 mg) PO Q4HPRN PRN mild pain #20 tabs 10/04/22
gabapentin 1,200 mg PO TID Pain 09/24/23
famotidine 20 mg tablet (Acid Controller) 20 mg PO BID PRN when you take Ibuprofen #20 tabs 09/26/23
ibuprofen 400 mg tablet 400 mg PO Q6H PRN moderate pain #30 tabs 09/26/23
oxycodone 5 mg tablet 5 mg PO Q8HPRN PRN moderate pain #15 tabs 09/26/23
sennosides 8.6 mg capsule (senna) 8.6 mg PO BID PRN when you take Oxycodone #20 caps 09/26/23
Home Medication Changes
new
famotidine 20 mg tablet (Acid Controller) 20 mg PO BID PRN when you take Ibuprofen #20 tabs 09/26/23
ibuprofen 400 mg tablet 400 mg PO Q6H PRN moderate pain #30 tabs 09/26/23
oxycodone 5 mg tablet 5 mg PO Q8HPRN PRN moderate pain #15 tabs 09/26/23
sennosides 8.6 mg capsule (senna) 8.6 mg PO BID PRN when you take Oxycodone #20 caps 09/26/23
Pending Results: Yes
Additional Pending Results:
path
--- NOTE | 2023-09-26 15:35 | W.[place]-PDMP ---
[place]-PD[place]
-
Checked the [place]- Pres[place] Drug Monitoring Program website, no red flags identified; safe to proceed with prescription.
[2023-09-26] MEDS: NEURONTIN 1200 MG PO (15:53)
[2023-09-29 11:55] LABS: HCV Quant by NAAT IU/mL Not Detected; HCV Quant by NAAT Interp Not Detected (Not Detected); HCV Quant by NAAT Log IU/mL Not Detected
== END 2023-09-26 17:51 | disposition home or self-care (01) | DRG 419 ==
LOC: 4 WEST ACU 12:58
PROVIDERS: Clinical Nurse Specialist Family Health; Physician Assistant; Surgery; ADMITTING PHYSICIAN Hospitalist; CONSULT PHYSICIAN Internal Medicine Gastroenterology; CONSULT PHYSICIAN Surgery; EMERGENCY PHYSICIAN Emergency Medicine; FAMILY PHYSICIAN Physician Assistant Medical
PROC: 0FT44ZZ Resection of Gallbladder, Percutaneous Endoscopic Approach (ICD-10-PCS; 2023-09-26)
DX: K80.12 Calculus of gallbladder with acute and chronic cholecystitis without obstruction (principal); D86.0 Sarcoidosis of lung; F41.9 Anxiety disorder, unspecified; R63.4 Abnormal weight loss; E11.40 Type 2 diabetes mellitus with diabetic neuropathy, unspecified; R74.01 Elevation of levels of liver transaminase levels; N92.0 Excessive and frequent menstruation with regular cycle; K21.9 Gastro-esophageal reflux disease without esophagitis; K58.0 Irritable bowel syndrome with diarrhea; K82.8 Other specified diseases of gallbladder; F17.210 Nicotine dependence, cigarettes, uncomplicated; Q07.00 Arnold-Chiari syndrome without spina bifida or hydrocephalus; Z86.19 Personal history of other infectious and parasitic diseases; Z88.1 Allergy status to other antibiotic agents; Z88.5 Allergy status to narcotic agent; Z88.8 Allergy status to other drugs, medicaments and biological substances; Z63.4 Disappearance and death of family member; Z80.1 Family history of malignant neoplasm of trachea, bronchus and lung; Z82.49 Family history of ischemic heart disease and other diseases of the circulatory system; Z87.442 Personal history of urinary calculi; Z86.010 Personal history of colon polyps
CPT/HCPCS: 88304; 74177; 74183; 76700; 80053; 81003; 83690; 84703; 85025; 86706; 86803; 87340; 87522; 93005; 96361; 96374; 96375; 99285; A9575; Q9967

== ENCOUNTER 2023-10-18 19:37 | Emergency (ER) | payer BC, SELFPAY ==
[2023-10-18 19:43] VITALS: BP 120/84
[2023-10-18 20:06] LABS: % Basophils 1.2 % (0-2); % Eosinophils 6.5 % (0-6); % Immature Granulocytes 0.4 % (0-0.5); % Lymphocytes 25.5 % (20.5-51.1); % Monocytes 7.6 % (1.7-9.3); % Neutrophils 58.8 % (42.2-75.2); Absolute Basophils 0.1 10^3/uL (0-0.2); Absolute Eosinophils 0.5 10^3/uL (0-0.7); Absolute Lymphocytes 2.1 10^3/uL (1.2-3.4); Absolute Monocytes 0.6 10^3/uL (0.1-0.6); Absolute Neutrophils 4.8 10^3/uL (1.4-6.5); Hemoglobin 13.1 g/dL (12.0-16.0); Mean Corp Hgb Conc. 33.6 g/dL (33.0-37.0); Mean Corpuscular Hgb 29.7 pg (27.0-31.0); Mean Corpuscular Volume 88.4 fL (81.0-99.0); Mean Platelet Volume 9.6 fL (7.4-10.4); Nucleated Red Blood Cells % 0 %; Platelet Count 339 10^3/uL (130-400); Red Blood Cell Count 4.41 10^6/uL (4.20-5.40); Red Cell Dist. Width 14.6 % (11.5-14.5); White Blood Cell Count 8.2 10^3/uL (4.8-10.8)
[2023-10-18 20:44] LABS: ALT (SGPT) 18 U/L (0-35); AST (SGOT) 23 U/L (14-36); Albumin 4.4 g/dl (3.5-5.0); Alkaline Phosphatase 64 U/L (38-126); Blood Urea Nitrogen 15 mg/dl (7-17); Calcium 9.4 mg/dl (8.4-10.2); Carbon Dioxide 22 mmol/L (22-30); Chloride 109 mmol/L (98-107); Glucose 76 mg/dl (70-99); Potassium 4.2 mmol/L (3.5-5.1); Sodium 141 mmol/L (135-145); Total Bilirubin 0.3 mg/dl (0.2-1.3); eGFR > 60.00
[2023-10-18 22:20] VITALS: BP 108/77; BMI 26.5
[2023-10-18 23:00] VITALS: BP 108/74
--- NOTE | 2023-10-18 23:17 | ED.GENMED ---
History of Present Illness
General
Chief Complaint: Abdominal Pain
Source: patient
Exam Limitations: none
Time Seen by Provider: 10/18/23 22:54
Nursing documentation reviewed up to this point in time: agreed with
History of Present Illness
History of Present Illness:
Pleasant 42-year-old female presents with right lower quadrant abdominal pain. Patient states that the pain began in the epigastrium and radiated down to the right lower quadrant. She states that she does have pain on the right side when she
pushes on the left side. Patient states she has extreme pain when she pushes on the right lower quadrant. Patient recently had a lap david 3 weeks ago. She has been having some diarrhea and soft stools since that procedure. She states that the
symptoms she is experiencing today are new and she has never felt them before. Patient was able to eat a small amount of dinner around 5 PM but states that she did not feel comfortable doing so. Patient request nonnarcotic pain medications due to
previous substance use history.
Past History
Past History
ED Past Medical History: Arrthythmia (PVC's), Psychiatric (Anxiety, ) and Other (Sarcoidosis, small fiber neuropathy, Headaches, Arnold Chiari Malformation, Dizziness, Neuropathy. Menorrhagia, Renal calculus, ); Negative Cancer, GERD, HTN,
Hypercholesterolemia, IDDM or NIDDM
ED Past Surgical History: (X 3), Gynecological (Hysterectomy) and Other (sinus Surgery, ); Negative Appendectomy or Bowel resection
Social History
Tobacco: Smoker
Alcohol: None
Drug: None
Personal:
Living: with family
Employment: Employed
Family History
Family History: Hypertension
Review of Systems
Review of Systems
Allergies reviewed?: Yes
Other source history: family
All Other Systems: ROS reviewed and negative except as documented in HPI and ROS
Constitutional: Reports no symptoms
EENT: Reports no symptoms
Respiratory: Reports no symptoms
Cardiac: Reports no symptoms
ABD/GI: Reports abdominal pain and diarrhea
: Reports no symptoms
Musculoskeletal: Reports no symptoms
Skin: Reports no symptoms
Neurological: Reports no symptoms
Endocrine: Reports no symptoms
Hematologic/Lymphatic: Reports no symptoms
Psychiatric: Reports no symptoms
Phy Exam
General Physical Exam
General Presentation: well appearing and no apparent distress
General Skin: warm and dry
General Habitus: normal
General Mental: alert
General Hydration: appears well hydrated
ENT Exam
ENT Exam: EOMI, pharynx normal, neck supple and normocephalic
Eye Exam
Eye Exam: PERRL, cornea clear and conjunctiva normal
Cardiovascular Exam
Cardiovascular Exam: regular rate/rhythm, no edema, no murmur and normal peripheral pulses
Pulmonary Exam
Pulmonary Exam: lungs clear, no respiratory distress, no rales, no crackles, no rhonchi, no stridor, no wheezing and no cough
Gastrointestinal Exam
Gastrointestinal Exam: normal bowel sounds and soft
Palpation: right lower quadrant: Moderate tenderness and generalized: Minimal tenderness
Neurological Exam
Neurological Exam: alert, oriented x3, no motor deficits and speech normal
Musculoskeletal Exam
Musculoskeletal Exam: full ROM and no edema
Skin Exam
Skin Exam: normal color, warm/dry, no rash and no petechia
Psychiatric Exam
Psychiatric Exam: normal mood/affect
Course
Orders/Labs/Results
Orders:
Orders
10/18/23 19:53
CMP [Comprehensive Metabolic Panel] Urgent
Complete Blood Count/With Diff Urgent
Lipase Urgent
Comment: ADD ON
10/18/23 22:55
Add On- LAB Urgent
Tests Added?: lipase
10/18/23 23:11
CT Abd/pelvis W Iv Cont Urgent
Comment:
Reason For Exam: periumbilical rad to RLQ abd pain
10/18/23 23:17
Acetaminophen 1000MG/100Ml [Ofirmev] 1,000 mg in 100 ml IV ONCE
Acetaminophen IV Indication:: ED Narcotic Naive Pt-ONCE
10/19/23 00:43
US Pelvis W Transvag Combined Urgent
Reason For Exam: right sided pelvic pain
10/19/23 00:44
0.9% Sodium Chloride 1000 ml [Nss] 1,000 ml IV BOLUS
Abnormal Lab Results
10/18/23
19:53
RDW 14.6 H %
(11.5-14.5)
Eosinophils % 6.5 H %
(0-6)
Chloride 109 H mmol/L
(98-107)
Lipase 304 H U/L
(23-300)
10/18/23 19:53
10/18/23 19:53
Vital Signs
Initial and Last Documented VS:
Initial Vital Signs
Temp Pulse Resp BP Pulse Ox
98.4 F 90 24 120/84 100
10/18/23 19:43 10/18/23 19:43 10/18/23 19:43 10/18/23 19:43 10/18/23 19:43
Last Documented Vital Signs
Temp Pulse Resp BP Pulse Ox
98.1 F 65 24 107/73 100
10/18/23 22:20 10/19/23 00:03 10/18/23 19:43 10/19/23 01:00 10/19/23 01:00
MDM/Problems Addressed
Differential Diagnosis Includes:
Appendicitis, colitis, postsurgical cholecystectomy complication
Acute Exacerbation and/or Progression of Chronic Illness:
None
*Critical Care Note
Total Time (30-74mins, 75-104mins- exclusive of procedures): Not Applicable
Update Note
Update Note:
CT ABDOMEN/PELVIS WITH CONTRAST
IMPRESSION:
1. No acute abnormality within the abdomen or pelvis.
2. No bowel obstruction. Status post cholecystectomy. Normal appendix
Incidentals:
-Trace free fluid in the deep pelvis. Right corpus luteum
- No obstructive uropathy.
- No hepatic or pancreatic mass.
- No abdominal aortic aneurysm.
- No acute osseous abnormality.
- No acute abnormality within the visualized lungs.
- No acute abnormality within the visualized soft tissues.
Case finalized on Oct 19 2023 12:08AM ET
Discussed this case with patient. We will get an ultrasound of the pelvis
PELVIC ULTRASOUND
IMPRESSION:
Status post hysterectomy.
Normal flow to the bilateral ovaries. Again seen is right corpus luteum.
Case finalized at 2:02 AM ET
ED Attending Note
-
Portions of this chart may have been created with voice recognition software.� Occasional wrong word or��sound alike� substitutions may have occurred due to the inherent limitations of voice recognition software.
Discharge Plan
Departure
Patient Disposition: Home (Routine Discharge)
Date of Disposition: 10/19/23
Time of Disposition: 02:29
Patient with high blood pressure during this ER visit?: No
Discharge Problem:
Abdominal pain in female
Instructions: Nausea and Vomiting, Adult (DC), Abdominal Pain
Prescriptions:
No Action
citalopram [Celexa] 40 MG tablet
40 mg PO DAILY
diphenhydramine HCl 50 mg Capsule
50 mg PO HS
topiramate [Topamax] 200 mg Tablet
200 mg PO HS
acetaminophen [Tylenol] 325 mg Tablet
650 mg PO PRN PRN (Reason: pain)
acetaminophen 325 mg Tablet
650 mg PO Q4HPRN PRN (Reason: mild pain) Qty: 20 0RF
gabapentin
1,200 mg PO TID
oxycodone 5 mg Tablet
5 mg PO Q8HPRN PRN (Reason: moderate pain) Qty: 15 0RF
ibuprofen 400 mg tablet
400 mg PO Q6H PRN (Reason: moderate pain) Qty: 30 0RF
senna 8.6 mg capsule
8.6 mg PO BID PRN (Reason: when you take Oxycodone) Qty: 20 0RF
famotidine [Acid Controller] 20 mg tablet
20 mg PO BID PRN (Reason: when you take Ibuprofen) Qty: 20 0RF
Referrals:
UNKNOWN - PT DOES,NOT KNOW [Family Provider] -
Activity Restrictions/Additional Instructions:
It was a pleasure meeting you and taking part in your care. We hope for your continued healing and wellness.
Please read discharge instructions in their entirety. However, they are for general education and may not describe your exact diagnosis at discharge. Information on your ER visit and medical conditions were discussed with you along with appropriate
follow up information...
If indicated, please take your medications as instructed and indicated on discharge paperwork.
Please schedule a follow up appointment as directed. Call to schedule an appointment
Please return to the emergency department with ANY change in, persisting, or worsening of symptoms. If any of your symptoms do not improve, or persist, or become more severe within 6-12 hours, please return to the emergency department for further
care.
Please return to the emergency department if you develop a headache, neck pain/stiffness, fever greater than 100.4F, chest pain, shortness of breath, persistent nausea, vomiting, slurred speech, difficulty walking, numbness/tingling, weakness, signs
of infection or any other symptoms that are worrisome to you.
If you have any questions or concerns please do not hesitate to call the Hospital at or E-mail me directly at [email or web address]
Interventions
Interventions:
*Risk Screen - Suicide Last Done: 10/18/23 19:43
*General Assessment Last Done: 10/18/23 22:20
*Neglect/Abuse Screening Last Done: 10/18/23 19:43
*ED COVID-19 Vaccine History Last Done: 10/18/23 22:20
OV-Jkztgc-Ovygridyun Assessment Last Done: 10/18/23 22:20
Discharge Date and Time
Print Language: GREENLANDIC
[2023-10-18] MEDS: OFIRMEV 100 IV (23:21)
[2023-10-18 23:31] LABS: Lipase 304 U/L (23-300)
[2023-10-19 00:02] VITALS: BP 101/71
[2023-10-19] MEDS: NSS 1000 IV (00:47)
[2023-10-19 01:00] VITALS: BP 107/73
== END 2023-10-19 02:36 | disposition home or self-care (01) ==
LOC: EMR 19:37
PROVIDERS: Emergency Medicine; EMERGENCY PHYSICIAN Student in an Organized Health Care Education/Training Program
DX: R10.31 Right lower quadrant pain (principal); R19.7 Diarrhea, unspecified; F17.200 Nicotine dependence, unspecified, uncomplicated; Z90.49 Acquired absence of other specified parts of digestive tract; Z90.710 Acquired absence of both cervix and uterus
CPT/HCPCS: 99285; 96374; 96361; 74177; 76830; 76856; 80053; 83690; 85025; Q9967

== ENCOUNTER → 2024-02-15 09:14 | Outpatient (REF) | payer BC, SELFPAY | LOC: WDC 09:14 | PROVIDERS: ATTENDING PHYSICIAN Student in an Organized Health Care Education/Training Program; FAMILY PHYSICIAN Physician Assistant Medical | DX: N64.4 Mastodynia (principal); N64.59 Other signs and symptoms in breast | CPT/HCPCS: 76642; 77062; 77066 ==

== ENCOUNTER 2024-07-17 12:46 | Emergency (ER) | payer BC, SELFPAY ==
[2024-07-17 12:48] VITALS: BP 132/87
[2024-07-17 13:11] LABS: % Immature Granulocytes 0.3 % (0-0.5); % Lymphocytes 19.9 % (20.5-51.1); % Monocytes 5.7 % (1.7-9.3); % Neutrophils 69.1 % (42.2-75.2); Absolute Basophils 0.1 10^3/uL (0-0.2); Absolute Eosinophils 0.3 10^3/uL (0-0.7); Absolute Lymphocytes 1.6 10^3/uL (1.2-3.4); Absolute Monocytes 0.4 10^3/uL (0.1-0.6); Absolute Neutrophils 5.4 10^3/uL (1.4-6.5); Hematocrit 37.9 % (37.0-47.0); Hemoglobin 13.3 g/dL (12.0-16.0); Mean Corp Hgb Conc. 35.1 g/dL (33.0-37.0); Mean Corpuscular Hgb 30.6 pg (27.0-31.0); Mean Corpuscular Volume 87.3 fL (81.0-99.0); Mean Platelet Volume 8.9 fL (7.4-10.4); Nucleated Red Blood Cells % 0 %; Platelet Count 233 10^3/uL (130-400); Red Blood Cell Count 4.34 10^6/uL (4.20-5.40); Red Cell Dist. Width 12.3 % (11.5-14.5); White Blood Cell Count 7.8 10^3/uL (4.8-10.8)
[2024-07-17 13:26] LABS: HCG, Serum Qualitative Screen Negative
[2024-07-17 13:29] LABS: ALT (SGPT) 13 U/L (0-35); AST (SGOT) 17 U/L (14-36); Albumin 4.3 g/dl (3.5-5.0); Alkaline Phosphatase 51 U/L (38-126); Blood Urea Nitrogen 23 mg/dl (7-17); Calcium 9.5 mg/dl (8.4-10.2); Carbon Dioxide 21 mmol/L (22-30); Chloride 114 mmol/L (98-107); Glucose 94 mg/dl (70-99); Lipase 192 U/L (23-300); Sodium 140 mmol/L (135-145); Total Bilirubin 0.3 mg/dl (0.2-1.3); Total Protein 7.2 g/dl (6.3-8.2); eGFR > 60.00
[2024-07-17 14:39] VITALS: BP 135/87
[2024-07-17 14:40] VITALS: BMI 25.1
--- NOTE | 2024-07-17 14:45 | ED.GENMED ---
History of Present Illness
General
Chief Complaint: Abdominal Pain
Source: patient
Exam Limitations: none
Time Seen by Provider: 07/17/24 14:07
Nursing documentation reviewed up to this point in time: agreed with
History of Present Illness
History of Present Illness:
Patient to ED with complaint of right sided abd. pain, Symptoms started intermittently approx 3 weeks ago. She was seen by PCP and started on omeprazole without improvement. Pain has worsened and become steady over the past few days. Brought to
ED by spouse for eval. Denies fever/chills. +nausea, no diarrhea. She had 1 episode of vomiting yesterday. PMH kidney stones but this pain is different. Prior cholecystectomy.
Past History
Past History
ED Past Medical History: Arrthythmia (PVC's), Psychiatric (Anxiety, ) and Other (Sarcoidosis, small fiber neuropathy, Headaches, Arnold Chiari Malformation, Dizziness, Neuropathy. Menorrhagia, Renal calculus, ); Negative Cancer, GERD, HTN,
Hypercholesterolemia, IDDM or NIDDM
ED Past Surgical History: Cholecystectomy, (X 3), Gynecological (Hysterectomy) and Other (sinus Surgery, ); Negative Appendectomy or Bowel resection
Social History
Tobacco: Smoker
Alcohol: None
Drug: Former user (history of vicodin and tramadol)
Personal:
Living: with family
Employment: Employed
Family History
Family History: Hypertension
Review of Systems
Review of Systems
Allergies reviewed?: Yes
All Other Systems: ROS reviewed and negative except as documented in HPI and ROS
Constitutional: Reports no symptoms
EENT: Reports no symptoms
Respiratory: Reports no symptoms
Cardiac: Reports no symptoms
ABD/GI: Reports abdominal pain (Right sided abd. pain)
: Reports no symptoms
Musculoskeletal: Reports no symptoms
Skin: Reports no symptoms
Neurological: Reports no symptoms
Psychiatric: Reports no symptoms
Phy Exam
General Physical Exam
General Presentation: well appearing and no apparent distress
General age: appears stated age
General Skin: warm and dry
General Habitus: normal
General Mental: alert
Cardiovascular Exam
Cardiovascular Exam: regular rate/rhythm and no edema
Pulmonary Exam
Pulmonary Exam: lungs clear and no respiratory distress
Gastrointestinal Exam
Gastrointestinal Exam: soft, no organomegaly, no pulsatile mass, non distended and no cva tenderness
Palpation: left upper quadrant: No tenderness, left lower quadrant: No tenderness, right upper quadrant: Moderate tenderness and right lower quadrant: Moderate tenderness
Musculoskeletal Exam
Musculoskeletal Exam: full ROM and neuro vasc intact
Skin Exam
Skin Exam: normal color, warm/dry and no rash
Psychiatric Exam
Psychiatric Exam: normal mood/affect
Course
Orders/Labs/Results
Orders:
Orders
07/17/24 12:47
IV Insert/Care/Rem.- Treatment PRN
Straight cath- Treatment ONCE
Test Result ONCE
07/17/24 12:53
EKG [Electrocardiogram (*1)] Urgent
Reason for Study: Abdominal Pain
EKG- Treatment ONCE
07/17/24 13:02
Complete Blood Count/With Diff Urgent
Comprehensive Metabolic Panel Urgent
HCG, Serum Qualitative Screen Urgent
Comment: Notify provider if positive test present
Lipase Urgent
07/17/24 14:43
Ketorolac [Toradol] 30 mg IV NOW STA
07/17/24 14:44
0.9% Sodium Chloride 1000 ml [Nss] 1,000 ml IV BOLUS
Iohexol [Omnipaque] See Protocol PO NOW STA
Prochlorperazine [Compazine] 10 mg IV NOW STA
07/17/24 14:45
CT Abd/pel W Iv And Oral Contr Urgent
Comment:
Reason For Exam: right sided abd. pain
07/17/24 14:56
Urinalysis Reflex To Culture Urgent
Date Specimen was Collected: 07/17/24
Time Specimen was Collected: 14:35
Abnormal Lab Results
07/17/24
13:02
Lymphocytes % 19.9 L %
(20.5-51.1)
Chloride 114 H mmol/L
(98-107)
Carbon Dioxide 21 L mmol/L
(22-30)
BUN 23 H mg/dl
(7-17)
07/17/24 13:02
07/17/24 13:02
Vital Signs
Initial and Last Documented VS:
Initial Vital Signs
Temp Pulse BP Pulse Ox
98.5 F 85 132/87 100
07/17/24 12:48 07/17/24 12:48 07/17/24 12:48 07/17/24 12:48
Last Documented Vital Signs
Temp Pulse Resp BP Pulse Ox
98.5 F 82 16 109/80 100
07/17/24 15:21 07/17/24 15:21 07/17/24 15:21 07/17/24 17:00 07/17/24 17:15
*Radiology
Radiology exam reviewed: radiology read reviewed
*Pulse Oximetry
Patient hypoxic: no
*Critical Care Note
Total Time (30-74mins, 75-104mins- exclusive of procedures): Not Applicable
Update Note
Update Note:
Patient to ED with complaint of right sided abd. pain. No fever/chills. Labs reviewed, non concerning findings. CT report reviewed with her. Probable right ovarian cyst rupture. She is resting comfortably. Will discharge home and she will
follow up with PCP and FISHER. Given instructions on s/s to return to ED and she is agreeable to plan
ED Attending Note
-
Portions of this chart may have been created with voice recognition software.� Occasional wrong word or��sound alike� substitutions may have occurred due to the inherent limitations of voice recognition software.
Discharge Plan
Departure
Patient Disposition: Home (Routine Discharge)
Date of Disposition: 07/17/24
Time of Disposition: 18:40
Patient with high blood pressure during this ER visit?: No
Condition: Good
Covid-19: Not Applicable
Discharge Problem:
Ovarian cyst
Instructions: Ovarian Cyst (DC)
Prescriptions:
No Action
citalopram [Celexa] 40 MG tablet
40 mg PO DAILY
diphenhydramine HCl 50 mg Capsule
50 mg PO HS
topiramate [Topamax] 200 mg Tablet
200 mg PO HS
acetaminophen 325 mg Tablet
650 mg PO Q4HPRN PRN (Reason: mild pain) Qty: 20 0RF
gabapentin
1,200 mg PO TID
ibuprofen 400 mg tablet
400 mg PO Q6H PRN (Reason: moderate pain) Qty: 30 0RF
Referrals:
Nadiya Acevedo PA-C [Family Provider, Family Practice] - Tomorrow
Activity Restrictions/Additional Instructions:
REturn to the emergency department immediately for any changes in/worsening of your symptoms.
Interventions
Interventions:
*Risk Screen - Suicide Last Done: 07/17/24 12:49
*General Assessment Last Done: 07/17/24 15:21
*Neglect/Abuse Screening Last Done: 07/17/24 12:49
*ED- Fall Risk Assessment Last Done: 07/17/24 15:21
*ED COVID-19 Vaccine History Last Done: 07/17/24 15:21
*Nursing Disposition Last Done: 07/17/24 18:56
VD-Qrgdeh-Flobcbmrdn Assessment Last Done: 07/17/24 15:21
Discharge Date and Time
Discharge Date/Time: 07/17/24 18:57
Print Language: BRITISH
[2024-07-17] MEDS: OMNIPAQUE 50 ML PO (14:59)
[2024-07-17] MEDS: COMPAZINE 10 MG IV (14:59)
[2024-07-17 15:00] VITALS: BP 120/83
[2024-07-17] MEDS: NSS 1000 IV (15:00)
[2024-07-17] MEDS: TORADOL 30 MG IV (15:00)
[2024-07-17 15:05] LABS: Urine Albumin Negative (Neg - Trace); Urine Bilirubin Negative (Negative); Urine Character Clear (Clear); Urine Color Yellow; Urine Glucose Negative (Negative); Urine Ketone Negative (Negative); Urine Leukocyte Negative (Negative); Urine Nitrite Negative (Negative); Urine Occult Blood Negative (Negative); Urine Specific Gravity 1.015 (<1.030); Urine Urobilinogen Negative (Neg - 1+); Urine pH 6.5 (5.0-9.0)
[2024-07-17 15:21] VITALS: BP 131/85
[2024-07-17 16:00] VITALS: BP 113/73
[2024-07-17 17:00] VITALS: BP 109/80
== END 2024-07-17 18:57 | disposition home or self-care (01) ==
LOC: EMR 12:46
PROVIDERS: Emergency Medicine; Nurse Practitioner; EMERGENCY PHYSICIAN Emergency Medicine; FAMILY PHYSICIAN Physician Assistant Medical
DX: N83.201 Unspecified ovarian cyst, right side (principal); I49.3 Ventricular premature depolarization; F41.9 Anxiety disorder, unspecified; D86.9 Sarcoidosis, unspecified; G62.9 Polyneuropathy, unspecified; R51.9 Headache, unspecified; Q07.00 Arnold-Chiari syndrome without spina bifida or hydrocephalus; F17.200 Nicotine dependence, unspecified, uncomplicated; Z82.49 Family history of ischemic heart disease and other diseases of the circulatory system; Z87.442 Personal history of urinary calculi; Z90.49 Acquired absence of other specified parts of digestive tract; Z90.710 Acquired absence of both cervix and uterus
CPT/HCPCS: 99284; 96374; 96375; 96361; 74177; 80053; 81003; 83690; 84703; 85025; 93005; Q9967

== ENCOUNTER → 2024-08-02 10:09 | Outpatient (REF) | payer BC, SELFPAY | LOC: HWRAD 10:09 | PROVIDERS: ATTENDING PHYSICIAN Physician Assistant Medical | DX: N83.201 Unspecified ovarian cyst, right side (principal) | CPT/HCPCS: 76830; 76856 ==

== ENCOUNTER → 2024-09-26 13:17 | Outpatient (REF) | payer BC, SELFPAY | LOC: HWRAD 13:17 | PROVIDERS: ATTENDING PHYSICIAN Physician Assistant Medical | DX: N83.299 Other ovarian cyst, unspecified side (principal) | CPT/HCPCS: 76830; 76856 ==

== ENCOUNTER 2024-11-14 07:37 | Emergency (ER) | payer BC, SELFPAY ==
[2024-11-14 07:40] VITALS: BP 105/69; BMI 25.3
[2024-11-14 08:00] VITALS: BP 105/73
--- NOTE | 2024-11-14 08:28 | ED.GENMED ---
History of Present Illness
General
Chief Complaint: Cough
Source: patient and spouse
Exam Limitations: none
Time Seen by Provider: 11/14/24 08:09
Nursing documentation reviewed up to this point in time: agreed with
History of Present Illness
History of Present Illness:
44-year-old female with history as noted presents to the ER for evaluation of shortness of breath and coughing. Patient reports that yesterday she started with mild URI symptoms she says she had some mild runny nose and cough. Overnight she
started to have more severe cough this morning woke up around 3 AM with coughing fits and shortness of breath. Symptoms were not improving and ultimately EMS was called to bring her to the hospital. She says that EMS gave her an albuterol inhaler
which greatly improved her symptoms. She now feels much better. She has not had any associated chest pain. She has not had any fevers or chills. She denies any other acute complaints. She says that her child was sick with a virus over the past
few days. Denies any history of asthma but reports that she is a smoker.
Past History
Past History
ED Past Medical History: Arrthythmia (PVC's), Psychiatric (Anxiety, ) and Other (Sarcoidosis, small fiber neuropathy, Headaches, Arnold Chiari Malformation, Dizziness, Neuropathy. Menorrhagia, Renal calculus, ); Negative Cancer, GERD, HTN,
Hypercholesterolemia, IDDM or NIDDM
ED Past Surgical History: Cholecystectomy, (X 3), Gynecological (Hysterectomy) and Other (sinus Surgery, ); Negative Appendectomy or Bowel resection
Social History
Tobacco: Smoker
Alcohol: None
Drug: Former user (history of vicodin and tramadol)
Personal:
Living: with family
Employment: Employed
Family History
Family History: Hypertension
Review of Systems
Review of Systems
All Other Systems: ROS reviewed and negative except as documented in HPI and ROS
Constitutional: Denies fever or chills
EENT: Reports runny nose
Respiratory: Reports cough and trouble breathing
Cardiac: Denies chest pain
ABD/GI: Denies abdominal pain or vomiting
Musculoskeletal: Denies edema
Neurological: Denies headache
Phy Exam
Physical Exam
Physical Exam:
General: Awake, alert, oriented x3; no acute distress
Head: Normocephalic, atraumatic
Eyes: Conjunctiva normal, sclera anicteric
Throat: Airway intact, handling secretions
Neck: Trachea midline, no JVD noted
Lungs: Clear to auscultation bilaterally, no wheezing, rales, rhonchi
Heart: Regular rate and rhythm, no murmurs, gallops, or rubs appreciated
Neuro: Grossly intact
Skin: Warm and dry
Extremities: No edema in extremities, warm and well-perfused
Scores
Heart Failure Risk
Heart Failure Risk Score: Not Applicable
Heart Score for Chest Pain Patients
STEMI patient?: Not applicable
Withdrawal Assessment of Alcohol
Withdrawal Assessment Completed?: Not applicable
Course
Orders/Labs/Results
Orders:
Orders
11/14/24 07:40
EKG [Electrocardiogram (*1)] Urgent
Reason for Study: Shortness of Breath
EKG- Treatment ONCE
11/14/24 08:11
CR Chest - 2 Views Urgent
Comment:
Reason For Exam: sob, cough
11/14/24 08:53
Prednisone [Deltasone] 50 mg PO NOW STA
Vital Signs
Initial and Last Documented VS:
Initial Vital Signs
Temp Pulse Resp BP Pulse Ox
36.7 C 91 18 105/69 100
11/14/24 07:40 11/14/24 07:40 11/14/24 07:40 11/14/24 07:40 11/14/24 07:40
Last Documented Vital Signs
Temp Pulse Resp BP Pulse Ox
36.7 C 91 18 105/73 98
11/14/24 07:40 11/14/24 07:40 11/14/24 07:40 11/14/24 08:00 11/14/24 08:34
MDM/Problems Addressed
Differential Diagnosis Includes:
Bronchitis, asthma/COPD, pneumonia, pneumothorax
MDM/Problems Addressed:
44-year-old female presents to the ER for evaluation of shortness of breath and coughing developed over the past 24 hours that improved with albuterol treatment prehospital. Vital signs here are within acceptable range. Physical exam is as above.
She had an EKG in triage which shows normal sinus rhythm with no acute ischemic changes. Will plan to check chest x-ray to rule out signs of pneumonia. Overall suspect likely acute bronchitis likely triggered by viral illness as patient had
preceding congestion and had recent sick family member. Very low clinical suspicion for emergent pathology such as ACS or pulmonary embolism�no chest pain to suggest ACS and symptoms improved with albuterol; similarly no chest pain, no tachycardia
or hypoxia, patient is PERC negative no indication for emergent workup for PE at this point. Plan to treat with steroids and albuterol and patient can be safely discharged to follow-up with a primary doctor pending x-ray to rule out pneumonia.
Chest x-ray reviewed by me shows no acute abnormality. Patient clinically stable on reassessment. Will plan to trial short course of steroids and albuterol. Stable for discharge to follow-up with primary care physician. I did supervisor counseling and guidance regarding
smoking cessation. Patient is very comfortable this plan. We spoke about return precautions all questions answered.
*Radiology
Radiology exam reviewed: preliminary read by ED provider
*Pulse Oximetry
SaO2: 98
Oxygen Mode of Delivery: Room air
Patient hypoxic: no (98%)
*EKG
Interpreted by ED Provider?: Yes
Comparison EKG: no changes
Heart Rate: 95
Rate: normal
Rhythm: sinus
[place]: normal axis
Interval: normal interval
QRS Pattern: normal QRS
Ischemia: no ischemia
*Critical Care Note
Total Time (30-74mins, 75-104mins- exclusive of procedures): Not Applicable
Data Reviewed
Review of Other/Old Records Reveals: Records
Source: patient and spouse
Further Testing Considered But Not Given:
Considered need for lab work including D-dimer, troponin, BNP, etc
ED Attending Note
-
Portions of this chart may have been created with voice recognition software.� Occasional wrong word or��sound alike� substitutions may have occurred due to the inherent limitations of voice recognition software.
Discharge Plan
Departure
Patient Disposition: Home (Routine Discharge)
Date of Disposition: 11/14/24
Time of Disposition: 08:56
Patient with high blood pressure during this ER visit?: No
Discharge Problem:
Acute bronchitis
Instructions: Acute Bronchitis, Adult (DC), Cough, Adult (DC)
Prescriptions:
New
prednisone 50 mg tablet
50 mg PO DAILY Qty: 5 0RF
albuterol sulfate 2.5 mg /3 mL (0.083 %) solution for nebulization
2.5 mg inhalation Q4H PRN (Reason: shortness of breath or wheezing) Qty: 75 0RF
albuterol sulfate [Ventolin HFA] 90 mcg/actuation HFA aerosol inhaler
2 puff inhalation Q6H PRN (Reason: shortness of breath or wheezing) Qty: 6.7 0RF
No Action
citalopram [Celexa] 40 MG tablet
40 mg PO DAILY
diphenhydramine HCl 50 mg Capsule
50 mg PO HS
topiramate [Topamax] 200 mg Tablet
200 mg PO HS
acetaminophen 325 mg Tablet
650 mg PO Q4HPRN PRN (Reason: mild pain) Qty: 20 0RF
gabapentin
1,200 mg PO TID
ibuprofen 400 mg tablet
400 mg PO Q6H PRN (Reason: moderate pain) Qty: 30 0RF
Referrals:
Nadiya Acevedo PA-C [Family Provider, Family Practice] - Follow up in 1 week
Activity Restrictions/Additional Instructions:
Thank you for visiting the Emergency Department at [facility].
1. Please schedule a follow up appointment as directed. Call first thing tomorrow morning to make an appointment.
2. If indicated, please take your medications as instructed and indicated on discharge paperwork.
3. If any of your symptoms do not improve, or persist, or become more severe within 6-12 hours, please return to the emergency department for further care.
4. Please return to the emergency department if you develop a headache, neck pain/stiffness, fever greater than 100.4F, chest pain, shortness of breath, persistent nausea, vomiting, slurred speech, difficulty walking, numbness/tingling, weakness,
signs of infection or any other symptoms that are worrisome to you.
Please call [phone] if you have any questions.
Interventions
Interventions:
*Risk Screen - Suicide Last Done: 11/14/24 07:43
*General Assessment Last Done: 11/14/24 07:43
*Neglect/Abuse Screening Last Done: 11/14/24 07:43
Discharge Date and Time
Print Language: SAMOAN
[2024-11-14] MEDS: DELTASONE 50 MG PO (09:01)
== END 2024-11-14 09:26 | disposition home or self-care (01) ==
LOC: EMR 07:37
PROVIDERS: EMERGENCY PHYSICIAN Emergency Medicine; FAMILY PHYSICIAN Physician Assistant Medical
DX: J20.9 Acute bronchitis, unspecified (principal); D86.9 Sarcoidosis, unspecified; F41.9 Anxiety disorder, unspecified; G60.8 Other hereditary and idiopathic neuropathies; Q07.00 Arnold-Chiari syndrome without spina bifida or hydrocephalus; F17.200 Nicotine dependence, unspecified, uncomplicated
CPT/HCPCS: 99284; 71046; 93005